=== PATIENT | female | born 1955 | race Caucasian/White ===

== ENCOUNTER 2019-03-29 00:51 | Day surgery (SDC) | payer BC, SELFPAY ==
[2019-03-18 10:45] VITALS: BMI 40.0
[2019-03-29] VITALS (7 sets, daily range): BP systolic 99–128; BP diastolic 53–93; PULSE 55–67; RESP 10–18; TEMP 36.4; O2SAT 97–100
--- NOTE | ~2019-03-29 | XR_ITS ---
EXAMINATION: XR abdomen/kub 1V INDICATION: Urinary tract calculi TECHNIQUE: Supine views of the abdomen were obtained on 2 radiographs. COMPARISON: 02/24/2019 FINDINGS: A left internal ureteral stent is in position with the proximal aspect coiling in the expec goldie location of the left renal pelvis. There appears to be a 12 mm stone adjacent to the mid stent pr ojecting over the left sacrum. An 8 mm stone is seen in the upper pole of the right kidney. There are multiple punctate left kidney stones. The bowel gas pattern is normal. There is a moderate volume of colonic stool. IMPRESSION: 1. Likely 12 mm stone adjacent to the mid and left ureteral stent. 2. Bilateral nephrolithiasis. Reviewed, dictated and finalized at location A. CRIPTION CREW LEADER
--- NOTE | 2019-03-29 07:06 | WPDHPUPDATE1 ---
History and Physical Update Update Date/Time: 03/29/19 07:06 History and Physical has been reviewed, including an updated exam of the patient. There are NO changes in the patient's condition. Risks, benefits, and alternatives have been discussed and questions answered. Patient agrees to proceed with procedure.
[2019-03-29] MEDS: LACTATED RINGERS 1,000 ML 30 ML IV CONT (09:05)
[2019-03-29 09:27] LABS: Glucose Point of Care 112 (65-105)
--- NOTE | 2019-03-29 09:39 | P.PNAN_ITS ---
Anes - Initial Pre Proc Eval Procedure: Operation Date: 03/29/19 10:30 Proposed Procedures p Left Extracorporeal Shock Wave Lithotripsy - Chuck Cai MD Date/Time: 03/29/19 09:39 Surgeon: Chuck Cai MD Pre Op Diagnosis: Left Kidney Stone Patient Data Age: 64 Gender: F Height: 5 ft 6 in Weight: 113.4 kg Last Vital Signs Temp 97.5 F L 03/29/19 09:20 Pulse 67 03/29/19 09:20 Resp 18 03/29/19 09:20 BP 115/68 03/29/19 09:20 Pulse Ox 100 03/29/19 09:20 Allergies Allergy/AdvReac Type Severity Reaction Status Date / Time No Known Allergies Allergy Verified 03/29/19 08:47 Home Medications Medication Instructions Recorded Confirmed Type Myrbetriq 50 mg PO DAILY 01/01/19 03/29/19 History chlorthalidone 50 mg PO DAILY 01/01/19 03/29/19 History cholecalciferol (vitamin D3) 2,000 unit PO DAILY 01/01/19 03/29/19 History losartan [Cozaar] 50 mg PO HS 01/01/19 03/29/19 History metformin [Glucophage] 500 mg PO BID 01/01/19 03/29/19 History potassium citrate [Urocit-K 15] 30 meq PO BID 01/01/19 03/29/19 History simvastatin [Zocor] 20 mg PO HS 01/01/19 03/29/19 History nitrofurantoin macrocrystal 100 mg PO Q12H 03/18/19 03/29/19 History Laboratory Tests 03/29/19 09:16 POC Capillary Glucose 112 mg/dl H mg/dl (65-105) Patient hx anesthesia problems: post op nausea/vomiting Family hx anesthesia problems: none PMFSH Past Medical History Medical History (Updated 02/24/19 @ 11:28 by Silas Florian MD) Arthritis back and bilat knees Diabetes mellitus HLD (hyperlipidemia) HTN (hypertension) Kidney stone Morbid obesity with BMI of 40.0-44.9, adult Recurrent kidney stones Recurrent UTI Surgical History Surgical History (Updated 02/24/19 @ 09:38 by Domonique Paz PA-C) History of History of colonoscopy History of dilation and curettage History of tonsillectomy and adenoidectomy History of total right hip arthroplasty Social History Social History (Updated 02/24/19 @ 09:41 by Domonique Paz PA-C) Smoking status: Never smoker Alcohol intake: current Drinks per week: 0 Substance use: never Additional living arrangements comments: Lives with in [place]. Additional occupation/education comments: Works at [employer]. Gender identity (if verbalized by the patient): Female Spiritual care concerns: No Agree to blood products: No Anes - Eval Final PreProcedure Day of Procedure 03/29/19 09:39 Patient weight: morbidly obese Heart: regular rate and rhythm Lungs: clear to auscultation Airway: Mallampati scale class III Neurological: alert and oriented Last oral intake: >/= 8 hours ASA classification: IV Emergent: no Anesthetic plan: proceed Anesthesia type and monitoring: general LMA and standard monitoring Informed Consent: The patient's anesthetic plan and its attendant risks and benefits were discussed with the patient/family/POA. Questions were solicited and answers provided to the satisfaction of the patient/family/POA.
[2019-03-29] MEDS: ONDANSETRON INJ 4 MG/2 ML VIAL IV PUSH (09:47)
[2019-03-29] MEDS: SCOPOLAMINE 1.5 MG PATCH TRANSDERM (09:47)
--- NOTE | 2019-03-29 11:16 | PM.PROC ---
Procedure Note - Detailed Date of procedure: 03/29/19 Pre-op diagnosis: Left Kidney Stone Post-op diagnosis: same Procedure performed: Left ESWL Description of procedure: The patient was brought to the operative suite where she was placed in the supine position on the Dornier lithotripsy table. The focal point of the lithotripter was placed at an 11mm left mid-ureteral calculus. A total of 3000 shocks were delivered at a power setting of 8. There appeared to be good fragmentation of the stone. The patient tolerated the procedure well and was taken to the recovery room in good condition. Anesthesia: GLMA Surgeon: Chuck Cai MD Estimated blood loss (mL): 0 Drains: No Packing: No Pathology: none sent Complications: No immediate complications Condition: stable Disposition: PACU
== END 2019-03-29 13:20 | disposition home or self-care (01) ==
PROVIDERS: PCP Nurse Practitioner Adult Health; Visit Provider Urology
PROC: (CPT 50590; principal; 2019-03-29 10:30)
DX: N20.0 Calculus of kidney (principal); I10 Essential (primary) hypertension; E78.5 Hyperlipidemia, unspecified; E11.9 Type 2 diabetes mellitus without complications; E66.01 Morbid (severe) obesity due to excess calories; Z68.41 Body mass index [BMI] 40.0-44.9, adult
CPT/HCPCS: 50590; 74018; A9270; J0131; J1100; J2250; J2405; J2704; J3370; J7120

== ENCOUNTER 2019-04-15 14:16 | Outpatient (CLI) | payer BC, SELFPAY ==
--- NOTE | ~2019-04-15 | XR_ITS ---
XR abdomen/kub 1V 04/15/2019 14:39 Indication: Left ureteral stone. Procedure: KUB Comparison: Comparison to multiple prior studies sequentially, with oldest reviewed study dated 09/2017. Findings: There is a large left mid ureteral stone at the sacral level measuring 2 x 1.4 cm. Left int ernal ureteral stent in expected position. Moderate lower lumbar spondylosis. There are multiple bila teral renal stones. Nonobstructive bowel gas pattern. Impression: 1: 2 x 1.4 cm left mid ureteral stone at the sacral level. 2: Bilateral nephrolithiasis. Reviewed, dictated and finalized at location A. ENTIALING SPECIALIST Impression: 1: 2 x 1.4 cm left mid ureteral stone at the sacral level. 2: Bilateral nephrolithiasis.
== END 2019-04-15 14:17 | disposition home or self-care (01) ==
PROVIDERS: PCP Nurse Practitioner Adult Health; Visit Provider Urology
DX: N20.1 Calculus of ureter (principal); N20.0 Calculus of kidney
CPT/HCPCS: 74018

== ENCOUNTER 2019-04-22 08:28 | Outpatient (CLI) | payer BC, SELFPAY ==
--- NOTE | ~2019-04-22 | XR_ITS ---
EXAMINATION: XR abdomen/kub 1V INDICATION: Left ureteral stone TECHNIQUE: Supine views of the abdomen were obtained on 2 radiographs. COMPARISON: 04/15/2019 FINDINGS: A left internal ureteral stent is in expected position. There is a 1.9 cm stone in the mid ureter adjacent to the stent. There also appears to be a 7 mm stone or stone fragment adjacent to the proximal stent just below the left L3 transverse process. There is an 8 mm stone in the right kidney upper pole. Several left kidney stones are identified which measure up to 3 mm. The bowel gas patter n is normal. There is moderate lumbar spondylosis. IMPRESSION: 1. Unchanged 2 cm stone in the left mid ureter adjacent to the internal ureteral stent. 2. Bilateral nephrolithiasis. Reviewed, dictated and finalized at location A. NEY SUPERVISOR BRICK IMPRESSION: 1. Unchanged 2 cm stone in the left mid ureter adjacent to the internal uretera l stent. 2. Bilateral nephrolithiasis.
== END 2019-04-22 08:29 | disposition home or self-care (01) ==
PROVIDERS: PCP Nurse Practitioner Adult Health; Visit Provider Urology
DX: N20.2 Calculus of kidney with calculus of ureter (principal)
CPT/HCPCS: 74018

== ENCOUNTER 2019-05-02 02:17 | Day surgery (SDC) | payer BC, SELFPAY ==
[2019-04-24 09:18] VITALS: BMI 40.3
[2019-05-02] VITALS (7 sets, daily range): BP systolic 89–129; BP diastolic 51–71; PULSE 59–75; RESP 12–20; TEMP 36.2–37.4; O2SAT 97–100
--- NOTE | ~2019-05-02 | XR_ITS ---
EXAMINATION: XR retrograde pyelo w/stent LT DATE: 05/02/2019 11:39 INDICATION: Left ureteral stone for stone extraction and stent placement TECHNIQUE: 8 fluoroscopic spot images of the abdomen and pelvis were obtained during procedure perfor med by Dr. Cai. Radiologist was not present for the imaging or procedure. The amount of fluoroscop y time used during this procedure was 0.3 minutes. COMPARISON: 04/22/2019 FINDINGS: On the initial scout sniper images there is a poorly defined large sclerotic stone projecting over the left sacral ala immediately cephalad to the ureteroscope. This no longer visualized on the subsequent imag e which demonstrates a wire advanced into the more proximal left ureter. Subsequent images demonstrat e the tip of a catheter and subsequently injected contrast within the severely dilated left renal col lecting system. Final images demonstrate placement of a left internal ureteral stent with loops forme d in the left renal pelvis and in the bladder. IMPRESSION: 1. Left ureteral stone extraction and stent of a left placement of a left internal ureteral stent whi ch is in expected position. Reviewed, dictated and finalized at location A. PUMPING STATION HELPER IMPRESSION: 1. Left ureteral stone extraction and stent of a left placement of a left inter nal ureteral stent which is in expected position.
--- NOTE | 2019-05-02 06:37 | WPDHPUPDATE1 ---
History and Physical Update Update Date/Time: 05/02/19 06:37 History and Physical has been reviewed, including an updated exam of the patient. There are NO changes in the patient's condition. Risks, benefits, and alternatives have been discussed and questions answered. Patient agrees to proceed with procedure.
--- NOTE | 2019-05-02 08:14 | P.PNAN_ITS ---
Anes - Initial Pre Proc Eval Procedure: Operation Date: 05/02/19 11:45 Proposed Procedures p Cystoscopy, Left Ureteroscopy, Left Stone Extraction, Possible Left Stent Placement - Chuck Cai MD s Holmium Laser Procedure - Chuck Cai MD Date/Time: 05/02/19 08:14 Surgeon: Chuck Cai MD Pre Op Diagnosis: Left Kidney Stones Patient Data Age: 64 Gender: F Height: 1.68 m Weight: 113.4 kg Allergies Allergy/AdvReac Type Severity Reaction Status Date / Time No Known Allergies Allergy Verified 04/24/19 09:19 Home Medications Medication Instructions Recorded Confirmed Type Myrbetriq 50 mg PO DAILY 01/01/19 04/24/19 History chlorthalidone 50 mg PO DAILY 01/01/19 04/24/19 History cholecalciferol (vitamin D3) 2,000 unit PO DAILY 01/01/19 04/24/19 History losartan [Cozaar] 50 mg PO HS 01/01/19 04/24/19 History metformin [Glucophage] 500 mg PO BID 01/01/19 04/24/19 History potassium citrate [Urocit-K 15] 30 meq PO BID 01/01/19 04/24/19 History simvastatin [Zocor] 20 mg PO HS 01/01/19 04/24/19 History Patient hx anesthesia problems: none Family hx anesthesia problems: none [facility] Past Medical History Medical History (Updated 02/24/19 @ 11:28 by Silas Florian MD) Arthritis back and bilat knees Diabetes mellitus HLD (hyperlipidemia) HTN (hypertension) Kidney stone Morbid obesity with BMI of 40.0-44.9, adult Recurrent kidney stones Recurrent UTI Surgical History Surgical History (Updated 02/24/19 @ 09:38 by Domonique Paz PA-C) History of History of colonoscopy History of dilation and curettage History of tonsillectomy and adenoidectomy History of total right hip arthroplasty Social History Social History (Updated 02/24/19 @ 09:41 by Domonique Paz PA-C) Smoking status: Never smoker Alcohol intake: current Drinks per week: 0 Substance use: never Additional living arrangements comments: Lives with in [place]. Additional occupation/education comments: Works at [employer]. Gender identity (if verbalized by the patient): Female Spiritual care concerns: No Agree to blood products: No Anes - Eval Final PreProcedure Day of Procedure 05/02/19 08:14 Patient weight: morbidly obese Heart: regular rate and rhythm Lungs: clear to auscultation and normal air movement Airway: Mallampati scale class II Neurological: alert and oriented Last oral intake: >/= 8 hours ASA classification: III Emergent: no Anesthetic plan: proceed Anesthesia type and monitoring: general LMA Informed Consent: The patient's anesthetic plan and its attendant risks and benefits were discussed with the patient/family/POA. Questions were solicited and answers provided to the satisfaction of the patient/family/POA.
[2019-05-02] MEDS: LACTATED RINGERS 1,000 ML 30 ML IV CONT ×2 (10:21→12:18)
[2019-05-02 10:30] LABS: Glucose Point of Care 90 (65-105)
[2019-05-02] MEDS: SCOPOLAMINE 1.5 MG PATCH TRANSDERM (10:42)
[2019-05-02] MEDS: ceFAZolin 2 GM/D5W 50 ML 2 GM/50 ML BAG IVPB (10:48)
--- NOTE | 2019-05-02 11:40 | P.OP_ITS ---
Procedure Note - Detailed Date of procedure: 05/02/19 Pre-op diagnosis: Left Kidney Stones Post-op diagnosis: same Procedure performed: 1. Cystoscopy with left stent removal. 2. Left ureteroscopy with laser lithotripsy and stone extraction. 3. Left retrograde pyelogram with interpretation. 4. Left stent replacement. Description of procedure: The patient was brought to the operative suite where she is prepped and draped in a routine sterile fashion while in the dorsal lithotomy position after the uneventful induction of a general LMA anesthetic. A 19F rigid cystoscope was placed in the bladder. The patient had no evidence of urethral stricture or bladder neck contracture. The bladder mucosa was endoscopically normal without hyperemia or neoplasm. There was a single, orthotopic ureteral orifice bilaterally with an indwelling stent in the left ureter. The stent is grasped and removed without difficulty. A 0.035 glidewire was advanced into the left renal pelvis under fluoroscopy. The distal ureter was dilated with an 8F/10F ureteral dilator. Ureteroscopy was undertaken with a short tapered semi-rigid ureteroscope. The large, 2 cm left mid ureteral stone is fractured from prior ESWL. Using a 0.273 micron holmium laser fiber I fractured the stone into multiple fragments using a dusting setting. Either by irrigation or with a escape disposable stone basket. Due to the extent of this manipulation I did replace a 4.8F double-J ureteral stent. I 1st performed a retrograde pyelogram through an angiographic catheter to ensure all fragments had been removed and proper positioning of the stent. The proxi mal coil of the stent was confirmed to be in the renal pelvis and the distal coil in the bladder. The patient's bladder was emptied and he was taken to the recovery room having tolerated this procedure well. Anesthesia: GLMA Surgeon: Chuck Cai MD Estimated blood loss (mL): 0 Drains: Yes (4.8F ureteral stent) Packing: No Pathology: yes Complications: No immediate complications Condition: stable Disposition: PACU
[2019-05-02 11:59] LABS: Glucose Point of Care 100 (65-105)
== END 2019-05-02 13:27 | disposition home or self-care (01) ==
PROVIDERS: PCP Nurse Practitioner Adult Health; Visit Provider Urology
PROC: (CPT 52352; principal; 2019-05-02 11:45)
PROC: (CPT 52356; 2019-05-02 11:45)
DX: N20.1 Calculus of ureter (principal); I10 Essential (primary) hypertension; E78.5 Hyperlipidemia, unspecified; E11.9 Type 2 diabetes mellitus without complications; E66.01 Morbid (severe) obesity due to excess calories; Z68.41 Body mass index [BMI] 40.0-44.9, adult; Z79.84 Long term (current) use of oral hypoglycemic drugs
CPT/HCPCS: 52356; 74420; 82365; 88300; A9270; C1769; C1887; C2617; J0690; J1100; J2250; J2405; J2704; J3010; J7120; Q9966

== ENCOUNTER 2019-09-23 08:44 | Outpatient (CLI) | payer BC, SELFPAY ==
--- NOTE | ~2019-09-23 | XR_ITS ---
EXAMINATION: XR abdomen/kub 1V INDICATION: Nephrolithiasis TECHNIQUE: Supine views of the abdomen were obtained on 2 radiographs. COMPARISON: 04/22/2019 FINDINGS: The left internal ureteral stent has removed. The previously described stone adjacent to th e mid aspect of the internal ureteral stent is no longer identified. Multiple punctate calcifications project over the left kidney, the largest of which measures 2 mm in the lower pole. There is a stabl e 8 mm stone projecting over the right mid kidney. No stones are identified along the expected course s of the ureters or within the bladder. Pelvic phleboliths are noted. There is severe lower lumbar sp ondylosis. Mild bilateral hip osteoarthritis is noted. The bowel gas pattern is normal. IMPRESSION: 1. Unchanged nephrolithiasis. Left internal ureteral stent removed and left ureteral stone treated. Reviewed, dictated and finalized at location B. IMPRESSION: 1. Unchanged nephrolithiasis. Left internal ureteral stent removed and left ure teral stone treated.
== END 2019-09-23 08:45 | disposition home or self-care (01) ==
PROVIDERS: PCP Nurse Practitioner Adult Health; Visit Provider Urology
DX: N20.0 Calculus of kidney (principal)
CPT/HCPCS: 74018

== ENCOUNTER 2020-05-04 16:13 | Outpatient (CLI) | payer BC, SELFPAY | END 2020-05-04 16:14 | disposition home or self-care (01) | LOC: ANHCOVIDVC 16:13 | PROVIDERS: PCP Nurse Practitioner Adult Health | DX: Z23 Encounter for immunization (principal) | CPT/HCPCS: 0001A; 91300 ==

== ENCOUNTER 2020-05-15 02:37 | Emergency (ER) | payer BC, SELFPAY ==
--- NOTE | ~2020-05-15 | CT_ITS ---
EXAMINATION: CT abdomen pelvis wo con DATE: 05/15/2020 03:10 INDICATION: Left abdominal pain. TECHNIQUE: Computed tomography (CT) of the abdomen and pelvis was performed without intravenous contr ast. Automated exposure control and iterative reconstruction technique were employed. The dose-length product was 1433.95 mGy-cm. COMPARISON: CT abdomen and pelvis 02/24/2019 FINDINGS: The visualized portions of the lung bases are clear without pneumonia or pleural effusion. The heart size is normal. There are coronary artery calcifications. No pericardial effusion. The live r is normal. There is a gallstone in the gallbladder, which is normal in size. The spleen, pancreas, and adrenal glands are normal. There is cortical thinning of the kidneys. There are greater than 10 s tones in right kidney measuring up to 9 mm. There are greater than 10 stones in left kidney measuring up to 4 mm. There is diverticulosis of the colon without evidence of diverticulitis. There are no di lated loops of bowel. The appendix is normal. There is an umbilical hernia containing fat. There are no pathologically enlarged lymph nodes. There is no free intraperitoneal fluid. There is moderate lum bar spondylosis. IMPRESSION: 1. Bilateral nonobstructing kidney stones. 2. Cholelithiasis. Reviewed, dictated and finalized at location A.
[2020-05-15 02:41] VITALS: BP 99/66; PULSE 67; RESP 16; TEMP 36.3; O2SAT 100
[2020-05-15] MEDS: SODIUM CHLORIDE 0.9% IV 1,000 ML 999 ML IV CONT (03:13)
[2020-05-15] MEDS: MORPHINE SULFATE (*CRX) 4 MG/ML INJ IV PUSH (03:13)
[2020-05-15] MEDS: ONDANSETRON INJ 4 MG/2 ML VIAL IV PUSH (03:13)
[2020-05-15 03:14] LABS: Basophils Absolute Auto 0.1 K/mm3 (0.0-0.1); Basophils Percent Auto 0.6 % (0.2-1.2); Eosinophils Absolute Auto 0.3 K/mm3 (0-0.3); Eosinophils Percent Auto 3.6 % (0-4.4); Hematocrit 36.8 % (37.0-47.0); Hemoglobin 12.3 g/dL (12.0-15.0); Immature Granulocyte Absolute 0.04 K/mm3 (0.00-0.031); Immature Granulocyte Percent A 0.5 % (0-0.5); Lymphocytes Absolute Auto 2.26 K/mm3 (0.9-3.2); Mean Corpuscular HGB Conc 33.4 g/dl (32-36); Mean Corpuscular Hemoglobin 30.8 pg (26-34); Mean Corpuscular Volume 92.2 fl (80-100); Monocytes Absolute Auto 0.5 K/mm3 (0.1-0.6); Monocytes Percent Auto 6.4 % (2.6-8.5); Neutrophils Absolute Auto 4.7 K/mm3 (1.3-6.7); Neutrophils Percent Auto 59.9 % (45.5-73.1); Platelet Count Result 258 k/mm3 (150-375); Red Blood Count 3.99 M/mm3 (4.2-5.4); Red Cell Distribution Width 12.6 % (11.5-14.5); White Blood Count 7.8 K/mm3 (4.5-10.0)
[2020-05-15 03:24] LABS: Alanine Aminotransferase 12 U/L (4-35); Albumin Level 4.2 g/dL (3.5-5.1); Alkaline Phosphatase 79 U/L (38-126); Anion Gap 3 mmol/L (8-16); Aspartate Amino Transferase 20 U/L (14-36); Bilirubin,Total 0.5 mg/dL (0.2-1.3); Blood Urea Nitrogen 25 mg/dL (7-17); Calcium 9.6 mg/dL (8.4-10.2); Carbon Dioxide 33 mmol/L (22-30); Chloride 101 mmol/L (98-107); Estimated CRCL calculation 60 ml/min; Estimated Glomerular Filt Rate 56; Glucose 135 mg/dL (65-105); Potassium 4.1 mmol/L (3.4-5.0); Sodium 137 mmol/L (137-145)
[2020-05-15 03:25] LABS: Add Urine Microscopic? YES; Appearance Urine Cloudy (Clear); Bacteria Urine Trace /hpf; Bilirubin Urine Negative (Negative); Blood Urine 2+ (Negative); Color Urine Yellow (Yellow); Glucose Urine UA Negative (Negative); Ketones Urine Negative (Negative); Leukocyte Esterase Ur 2+ LEU/UL (Negative); Mucus Urine Rare /lpf; Nitrate Urine Negative (Negative); Protein Urine Negative (Negative); Specific Grav Ur 1.018 (1.001-1.035); Squamous Epithelial Cell Urine Moderate /hpf (Few); Urobilinogen Urine Negative mg/dL (<2.0); WBC Urine 51-75 /hpf
--- NOTE | 2020-05-15 05:15 | ED.GENADULT ---
HPI - General Adult General Chief complaint: Abdominal Pain Stated complaint: back pain/ hx kidney stones Time Seen by Provider: 05/15/20 02:59 History of Present Illness HPI narrative: Patient is a 65-year-old female who presents to emergency department with chief complaint of flank pain. The patient reports she has prior history of kidney stones and reports that today she started having pain in her left flank patient reports that is very uncomfortable is not improved with anything. Patient reports subtle bit of nausea with this but denies fever denies chills. Related Data Home Medications Medication Instructions Recorded Confirmed Myrbetriq 50 mg PO DAILY 01/01/19 04/24/19 chlorthalidone 50 mg PO DAILY 01/01/19 04/24/19 cholecalciferol (vitamin D3) 2,000 unit PO DAILY 01/01/19 04/24/19 losartan [Cozaar] 50 mg PO HS 01/01/19 05/02/19 metformin [Glucophage] 500 mg PO BID 01/01/19 05/02/19 potassium citrate [Urocit-K 15] 30 meq PO BID 01/01/19 04/24/19 simvastatin [Zocor] 20 mg PO HS 01/01/19 05/02/19 Allergies Allergy/AdvReac Type Severity Reaction Status Date / Time No Known Allergies Allergy Verified 05/15/20 02:45 Review of Systems Review of Systems: Narrative: A 10 system review of systems was completed on the patient and is negative except for what is stated in the HPI. Nursing and ancillary documentation was reviewed. [facility] Past Medical History Medical History Arthritis back and bilat knees Diabetes mellitus HLD (hyperlipidemia) HTN (hypertension) Kidney stone Morbid obesity with BMI of 40.0-44.9, adult Recurrent kidney stones Recurrent UTI Surgical History Surgical History History of History of colonoscopy History of dilation and curettage History of tonsillectomy and adenoidectomy History of total right hip arthroplasty Family History Family History Father Cerebrovascular accident Aneurysm Mother Alzheimer disease Pacemaker Social History Social History Smoking status: Never smoker Alcohol intake: current Drinks per week: 0 Substance use: never Additional living arrangements comments: Lives with in [place]. Additional occupation/education comments: Works at [employer]. Gender identity (if verbalized by the patient): Female Spiritual care concerns: No Agree to blood products: No Exam Narrative: Exam Narrative: GENERAL: Well-appearing, well-nourished, and in no acute distress. HEAD: Normocephalic, atraumatic. EYES: PERRLA and EOMI. ENT: Nares clear, no rhinorrhea or epistaxis. Mucous membranes moist. NECK: Supple. CHEST: Clear to auscultation. No respiratory distress. HEART: Regular rate and rhythm. No murmur heard. Normal peripheral pulses. ABDOMEN: Soft, nontender, nondistended, normal active bowel sounds. EXTREMITIES: Normal range of motion. No edema. SKIN: Warm, dry, no rash. NEURO: No focal deficits. Alert and oriented x3. PSYCH: Normal mood and affect. Course Vital Signs Vital signs: Vital Signs Temperature 36.3 C L 05/15/20 02:41 Pulse Rate 67 05/15/20 02:41 Respiratory Rate 16 05/15/20 02:41 Blood Pressure 99/66 L 05/15/20 02:41 Pulse Oximetry 100 05/15/20 02:41 Temperature 36.3 C L 05/15/20 02:41 Pulse Rate 67 05/15/20 02:41 Respiratory Rate 16 05/15/20 02:41 Blood Pressure 99/66 L 05/15/20 02:41 Pulse Oximetry 100 05/15/20 02:41 Medical Decision Making Vital Signs Vital Signs: Vital Signs Temperature 36.3 C L 05/15/20 02:41 Pulse Rate 67 05/15/20 02:41 Respiratory Rate 16 05/15/20 02:41 Blood Pressure 99/66 L 05/15/20 02:41 Pulse Oximetry 100 05/15/20 02:41 Temperature 36.3 C L 05/15/20 02:41 Pulse
[2020-05-15 05:36] VITALS: BP 131/75; PULSE 86; RESP 16; TEMP 36.8; O2SAT 98
== END 2020-05-15 05:37 | disposition home or self-care (01) ==
PROVIDERS: Emergency Provider Emergency Medicine; PCP Nurse Practitioner Adult Health
DX: N10 Acute pyelonephritis (principal); K80.20 Calculus of gallbladder without cholecystitis without obstruction; I10 Essential (primary) hypertension; E78.5 Hyperlipidemia, unspecified; E11.9 Type 2 diabetes mellitus without complications; E66.01 Morbid (severe) obesity due to excess calories; Z68.41 Body mass index [BMI] 40.0-44.9, adult; M17.0 Bilateral primary osteoarthritis of knee; Z96.641 Presence of right artificial hip joint; Z87.442 Personal history of urinary calculi; Z79.84 Long term (current) use of oral hypoglycemic drugs
CPT/HCPCS: 36415; 74176; 80053; 81001; 85025; 87077; 87086; 87088; 87186; 96361; 96374; 96375; 99284; J0696; J2270; J2405; J7030

== ENCOUNTER 2020-05-25 16:12 | Outpatient (CLI) | payer BC, SELFPAY | END 2020-05-25 16:13 | disposition home or self-care (01) | LOC: ANHCOVIDVC 16:12 | PROVIDERS: PCP Nurse Practitioner Adult Health | DX: Z23 Encounter for immunization (principal) | CPT/HCPCS: 0002A; 91300 ==

== ENCOUNTER → 2020-10-22 03:28 | Outpatient (CLI) | payer BC, SELFPAY ==
[2020-10-22 20:01] LABS: SARS-CoV-2 RNA PCR Positive
== END ==
PROVIDERS: PCP Nurse Practitioner Adult Health; Visit Provider Nurse Practitioner Adult Health
DX: U07.1 COVID-19 (principal)
CPT/HCPCS: C9803; U0003; U0005

== ENCOUNTER 2021-03-08 08:25 | Outpatient (CLI) | payer BC, MEDICARE, SELFPAY ==
--- NOTE | ~2021-03-08 | XR_ITS ---
EXAMINATION: XR abdomen/kub 1V DATE: 03/08/2021 08:41 INDICATION: Renal stone. TECHNIQUE: A supine view of the abdomen on 2 radiographs was obtained. COMPARISON: CT abdomen and pelvis 05/15/2020 FINDINGS: There are no dilated loops of bowel. There are phleboliths in the pelvis. There are multipl e stones in right kidney measuring up to 8 mm. There are multiple stones in left kidney measuring up to 4 mm. IMPRESSION: 1. Bilateral kidney stones. Reviewed, dictated and finalized at location B. ER MOLDED CANDLES IMPRESSION: 1. Bilateral kidney stones.
== END 2021-03-08 08:26 | disposition home or self-care (01) ==
PROVIDERS: PCP Nurse Practitioner Adult Health; Visit Provider Urology
DX: N20.0 Calculus of kidney (principal)
CPT/HCPCS: 74018

== ENCOUNTER 2021-08-12 13:22 | Outpatient (CLI) | payer BC, MEDICARE, SELFPAY ==
--- NOTE | 2021-08-12 13:30 | ECG_ITS ---
Measurements Intervals [place] Rate: 68 P: 52 CT: 179 QRS: -10 QRSD: 92 T: 27 QT: 369 QTc: 394 Interpretive Statements SINUS RHYTHM MODERATE VOLTAGE CRITERIA FOR LVH, CONSIDER NORMAL VARIANT [MEETS CRITERIA IN ONE OF: R(aVL), S(V1), R(V5), R(V5/V6)+S(V1)] ABNORMAL ECG COMPARED TO ECG 02/24/2019 11:04:22 NO SIGNIFICANT CHANGES Electronically Signed On 08-12-2021 14:36:03 CDT by Jay Jay Benitez M.D.
[2021-08-12 14:01] LABS: Anion Gap 5 mmol/L (8-16); Blood Urea Nitrogen 19 mg/dL (7-17); Calcium 8.9 mg/dL (8.4-10.2); Carbon Dioxide 31 mmol/L (22-30); Chloride 103 mmol/L (98-107); Estimated Glomerular Filt Rate > 60; Glucose 103 mg/dL (65-110); Sodium 139 mmol/L (137-145)
[2021-08-12 14:24] LABS: INR 1.1; Prothrombin Time 13.4 Seconds (11.1-14.7)
[2021-08-12 14:25] LABS: Partial Thromboplastin Time 29.7 SECONDS (22.3-36.8)
== END 2021-08-12 13:23 | disposition home or self-care (01) ==
LOC: ANHSURGERY 13:28
PROVIDERS: Anesthesiology; PCP Nurse Practitioner Adult Health; Visit Provider Urology
DX: N20.0 Calculus of kidney (principal); I10 Essential (primary) hypertension; E11.9 Type 2 diabetes mellitus without complications; Z01.818 Encounter for other preprocedural examination
CPT/HCPCS: 36415; 80048; 85610; 85730; 93005

== ENCOUNTER 2021-08-13 04:51 | Day surgery (SDC) | payer BC, MEDICARE, SELFPAY ==
[2021-08-12 09:59] VITALS: BMI 43.4
--- NOTE | 2021-08-12 10:20 | PC.NURSE ---
Report to the Outpatient Waiting Room, entrance under the green pavilion located off [facility], at time __10:30AM on date __08/13/21 . OR Time: _12:30AM . - You and your visitor will be asked a series of questions to screen for COVID 19 for your protection. - Only one visitor is allowed at this time. - The patient visitor is requested to leave or wait in car when not with patient. - A mask is required within the hospital. Patients may have clear liquids (water, carbonated beverages, clear teas, apple juice) until 3 hours prior to surgery with a maximum of 20 ounces. - No food from midnight until time of surgery - Infants may have breast milk until 4 hours before surgery, formula 6 hours prior to surgery. - Children will be allowed to drink immediately following surgery. If applicable, please bring a bottle or sippy cup to assist with drinking. Juice, water, soda, and popsicles are readily available. For infants on formula, please bring formula the day of surgery. Pacifiers are allowed. Take the following medications with a SIP of water the morning of surgery: ___NONE Medications to discontinue per physician ___HOLD ALL VITAMINS/SUPPLEMENTS 3 DAYS PRE-OP-TOOK A LAST DOSE 08/10/21 Please no make-up, nail slovak, hairspray, perfume, deodorant, or body powder the day of surgery. No jewelry (including any body piercings) or valuables the day of surgery, leave them at home. Please take a shower or bath the night before, or the morning of, surgery with an antibacterial soap. Wear comfortable, loose fitting clothing. Children are encouraged to wear pajamas. - Jewelry must be removed prior to entering the operating room. Rings and piercings that are not removed may be cut off. - The hospital will not accept responsibility for valuables. - Please leave all valuables, including medications, at home the day of surgery. If you are going home after surgery, a licensed uke driver must drive you home. - NO public transportation without another adult. - We recommend that an adult stay with you for 24 hours following discharge. - We also recommend that you do not drive, make important decision, drink alcoholic beverages, or take any drugs that were not prescribed by your health care provider for at least 24 hours after your discharge time. For Pediatric surgeries, we recommend two adults accompany the child home (only one inside the building at this time). Follow any additional instructions given to you from your surgeon. If you or anyone in your household have experienced Covid symptoms in the past week, please notify your surgeon or the nurse liaison at the phone number below for possible testing. Telephone instructions given to _PATIENT and asked if any additional questions and then verbalized understanding. Patient advised to call surgeon office or pre surgery nurse liaison [phone] if any additional questions.
--- NOTE | ~2021-08-13 | XR_ITS ---
EXAMINATION: XR abdomen/kub 1V DATE: 08/13/2021 10:49 INDICATION: Kidney stone. TECHNIQUE: A supine view of the abdomen on 2 radiographs was obtained. COMPARISON: CT abdomen and pelvis 05/15/2020, abdomen radiographs 03/08/2021 FINDINGS: There are no dilated loops of bowel. There are at least 3 stones in right kidney measuring up to 9 mm. There are least 3 stones in left kidney measuring up to 4 mm. IMPRESSION: 1. Bilateral kidney stones. Reviewed, dictated and finalized at location B. IMPRESSION: 1. Bilateral kidney stones.
--- NOTE | 2021-08-13 06:56 | WPDHPUPDATE1 ---
History and Physical Update Update Date/Time: 08/13/21 06:56 History and Physical has been reviewed, including an updated exam of the patient. There are NO changes in the patient's condition. Risks, benefits, and alternatives have been discussed and questions answered. Patient agrees to proceed with procedure.
[2021-08-13 11:36] LABS: Glucose Point of Care 100 mg/dl (65-105)
[2021-08-13] MEDS: LACTATED RINGERS 1,000 ML 30 ML IV CONT (11:36)
[2021-08-13 11:37] VITALS: BP 136/63; PULSE 66; RESP 16; TEMP 36.9; O2SAT 98
--- NOTE | 2021-08-13 12:16 | P.PNAN_ITS ---
Anes - Eval Pre Procedure Procedure: Operation Date: 08/13/21 12:30 Proposed Procedures p Right Renal Extracorporeal Shock Wave Lithotripsy - Chuck Cai MD Date/Time: 08/13/21 12:16 Surgeon: chanel Pre Op Diagnosis: right renal stone Patient Data Age: 66 Gender: F Height: 1.68 m Weight: 125 kg Last Vital Signs Temp 36.9 C 08/13/21 11:37 Pulse 66 08/13/21 11:37 Resp 16 08/13/21 11:37 BP 136/63 08/13/21 11:37 Pulse Ox 98 08/13/21 11:37 O2 Del Method Room Air 08/13/21 11:37 Allergies Allergy/AdvReac Type Severity Reaction Status Date / Time No Known Allergies Allergy Verified 08/13/21 11:00 Home Medications Medication Instructions Recorded Confirmed Type chlorthalidone 50 mg tablet 50 mg PO QAM 01/01/19 08/13/21 History cholecalciferol (vitamin D3) 50 2,000 unit PO DAILY 01/01/19 08/13/21 History mcg (2,000 unit) tablet metformin 500 mg tablet 500 mg PO BID 01/01/19 08/13/21 History (Glucophage) potassium citrate 15 mEq (1,620 30 meq PO BID 01/01/19 08/13/21 History mg) tablet,extended release (Urocit-K 15) simvastatin 20 mg tablet (Zocor) 20 mg PO HS 01/01/19 08/13/21 History telmisartan 40 mg tablet 1 tablet PO HS 08/12/21 08/13/21 History Laboratory Tests 08/13/21 11:34 POC Capillary Glucose 100 mg/dl mg/dl (65-105) Patient hx anesthesia problems: post op nausea/vomiting Family hx anesthesia problems: none Results Review: All pre-operative results and documents have been reviewed as part of the pre- operative evaluation. [facility] Past Medical History Medical History Arthritis back and bilat knees Diabetes mellitus HLD (hyperlipidemia) HTN (hypertension) Kidney stone Morbid obesity with BMI of 40.0-44.9, adult Recurrent kidney stones Recurrent UTI Surgical History Surgical History History of History of colonoscopy History of dilation and curettage History of tonsillectomy and adenoidectomy History of total right hip arthroplasty Family History Family History Father Cerebrovascular accident Aneurysm Mother Alzheimer disease Pacemaker Social History Social History Smoking status: Never smoker Alcohol intake: current Drinks per week: 0 Alcohol use details: Few times per year Substance use: never Living arrangements: with family Additional living arrangements comments: HUSB AND SON Additional occupation/education comments: Works at [employer]. Gender identity (if verbalized by the patient): Female Spiritual care concerns: No Agree to blood products: No Exam Day of Procedure 08/13/21 12:16
[2021-08-13] MEDS: levoFLOXacin 500 MG/D5W 100 ML 500 MG/100 ML BAG 100 MG IVPB (12:23)
--- NOTE | 2021-08-13 12:43 | P.PNAN_ITS ---
Anes - Eval Final PreProcedure Day of Procedure 08/13/21 12:43 Patient weight: morbidly obese Heart: regular rate and rhythm Lungs: decreased breath sounds Airway: Mallampati scale class III Neurological: alert and oriented Last oral intake: >/= 8 hours ASA classification: III Emergent: no Anesthetic plan: proceed Anesthesia type and monitoring: general LMA and standard monitoring Results Review: All pre-operative results and documents have been reviewed as part of the pre- operative evaluation. Informed Consent: The patient's anesthetic plan and its attendant risks and benefits were discussed with the patient/family/POA. Questions were solicited and answers provided to the satisfaction of the patient/family/POA.
--- NOTE | 2021-08-13 12:54 | W.PM.PROC2 ---
Procedure Note - Detailed Date of Procedure 08/13/21 Pre-op Diagnosis Right renal stone Post-op Diagnosis Same Procedure Performed Right ESWL Surgeon Chuck Cai MD Description of Procedure The patient was brought to the operative suite where she was placed in the supine position on the Dornier lithotripsy table. After the induction of a general anesthetic and administration of pre-operative Levaquin IV, the focal point of the lithotripter was placed at a 8mm right renal calculus. A total of 2500 shocks were delivered at a power setting of 4. There appeared to be good fragmentation of the stone. The patient tolerated the procedure well and was taken to the recovery room in good condition. Drains No Pathology None sent Complications No immediate complications Condition Stable
[2021-08-13 13:05] VITALS: BP 120/60; PULSE 67; RESP 10; TEMP 36.8; O2SAT 100
[2021-08-13 13:15] VITALS: BP 118/84; PULSE 63; RESP 10; O2SAT 100
[2021-08-13 13:20] LABS: Glucose Point of Care 94 mg/dl (65-105)
[2021-08-13 13:30] VITALS: BP 130/76; PULSE 64; RESP 12; O2SAT 97
[2021-08-13 13:40] VITALS: BP 122/63; PULSE 62; RESP 12; TEMP 37.1; O2SAT 97
[2021-08-13 14:10] VITALS: BP 110/60; PULSE 60; RESP 20
== END 2021-08-13 14:29 | disposition home or self-care (01) ==
PROVIDERS: PCP Nurse Practitioner Adult Health; Visit Provider Urology
PROC: (CPT 50590; principal; 2021-08-13 12:30)
DX: N20.0 Calculus of kidney (principal); E11.9 Type 2 diabetes mellitus without complications; I10 Essential (primary) hypertension; E78.5 Hyperlipidemia, unspecified; Z79.84 Long term (current) use of oral hypoglycemic drugs; E66.01 Morbid (severe) obesity due to excess calories; Z68.41 Body mass index [BMI] 40.0-44.9, adult
CPT/HCPCS: 50590; 74018; 82948; A9270; J1100; J1956; J2250; J2270; J2405; J2704; J7120

== ENCOUNTER 2021-08-24 08:53 | Outpatient (CLI) | payer BC, MEDICARE, SELFPAY ==
--- NOTE | ~2021-08-24 | XR_ITS ---
EXAMINATION: XR abdomen/kub 1V INDICATION: Calculus of kidney TECHNIQUE: Supine views of the abdomen were obtained on 2 radiographs. COMPARISON: 08/13/2021 FINDINGS: There is been interval treatment of a 9 mm stone previously described in the right kidney. Smaller stone fragments are seen within kidney. The largest measures 5 mm. There are multiple stones of the left kidney which are unchanged and measure up to 4 mm. No stone fragments are identified sary g the expected courses of the ureter or within the urinary bladder. There is a phlebolith of left pel vis. Severe lumbar spondylosis is noted. There is moderate osteoarthritis of the hips. IMPRESSION: 1. Bilateral nephrolithiasis with interval treatment of the previously described right kidney stone a nd smaller stone fragment now projecting in the kidney. Reviewed, dictated and finalized at location A. IMPRESSION: 1. Bilateral nephrolithiasis with interval treatment of the previously describe d right kidney stone and smaller stone fragment now projecting in the kidney.
== END 2021-08-24 08:54 | disposition home or self-care (01) ==
PROVIDERS: PCP Nurse Practitioner Adult Health; Visit Provider Urology
DX: N20.0 Calculus of kidney (principal)
CPT/HCPCS: 74018

== ENCOUNTER 2021-10-17 13:06 | Emergency (ER) | payer BC, MEDICARE, SELFPAY ==
[2021-10-17 13:18] VITALS: BP 141/72; PULSE 77; RESP 16; TEMP 37.1; O2SAT 99
[2021-10-17 13:34] LABS: Glucose Point of Care 99 mg/dl (65-105)
--- NOTE | 2021-10-17 14:00 | ED.WOUNDLAC ---
HPI - Wound/Laceration General Chief Complaint: Wound/Laceration Stated Complaint: Sore on left leg Time Seen by Provider: 10/17/21 13:50 Source: patient, RN notes reviewed and old records reviewed Mode of arrival: ambulatory Limitations: no limitations History of Present Illness HPI narrative: 66 year old female who presents to express care with complaints of wound to her left lower leg which started about 3 weeks ago when she tripped going into house from garage and smashed her lower leg in door causing initially a quarter sized blister to the inner medial calf. Patient reports that she saw her PCP and was started on Clindamycin of which she took her last dose on Monday. She states that the blister popped and it developed an ulcer with center blackened. Patient saw her automatic pinsetter adjuster and she has been having patient apply Vaseline and wrap with gauze daily and has next appointment not for 2 weeks. Patient reports that she was concerned since she has increased redness and raised red rash around the wound and it is warm to touch. Patient has 2cm X 3cm wound with blackened inner eschar tissue with no drainage noted left lower inner leg. Patient denies any fever, chills, or sweats. Patient's glucose per finger stick is 99. Onset (ago): week(s) (3) Location: other (left lower leg) Patient tetanus UTD: No Treatments prior to arrival: bandage and other (antibiotics) Related Data Home Medications Medication Instructions Recorded Confirmed chlorthalidone 50 mg tablet 50 mg PO QAM 01/01/19 10/17/21 cholecalciferol (vitamin D3) 50 2,000 unit PO DAILY 01/01/19 10/17/21 mcg (2,000 unit) tablet metformin 500 mg tablet 500 mg PO BID 01/01/19 10/17/21 (Glucophage) potassium citrate 15 mEq (1,620 30 meq PO BID 01/01/19 10/17/21 mg) tablet,extended release (Urocit-K 15) simvastatin 20 mg tablet (Zocor) 20 mg PO HS 01/01/19 10/17/21 telmisartan 40 mg tablet 1 tablet PO HS 08/12/21 10/17/21 Allergies Allergy/AdvReac Type Severity Reaction Status Date / Time No Known Allergies Allergy Verified 10/17/21 13:19 Review of Systems Review of Systems: CONSTITUTIONAL: Denies fever, chills, or sweats. EYES: Denies visual changes, redness, or discharge. ENT: Denies rhinorrhea, congestion, sore throat, or otalgia. CARDIOVASCULAR: Denies chest pain, palpitations, or edema. RESPIRATORY: Denies cough or dyspnea. GASTROINTESTINAL: Denies abdominal pain, nausea, vomiting, or diarrhea. GENITOURINARY: Denies dysuria or hematuria. SKIN: Positive for ulcer to left lower leg with eschar tissue in center and surrounding redness,raised rash with warmth MUSCULOSKELETAL: Denies back pain, joint pain, or myalgia. NEUROLOGIC: Denies headache, numbness, or weakness. PSYCHIATRIC: Denies anxiety or depression. All systems reviewed & are unremarkable except as noted in HPI and below PMFSH Past Medical History Medical History Arthritis back and bilat knees Diabetes mellitus HLD (hyperlipidemia) HTN (hypertension) Kidney stone Morbid obesity with BMI of 40.0-44.9, adult Recurrent kidney stones Recurrent UTI Surgical History Surgical History History of History of colonoscopy History of dilation and curettage History of tonsillectomy and adenoidectomy History of total right hip arthroplasty Family History Family History Father Cerebrovascular accident Aneurysm Mother Alzheimer disease Pacemaker Social History Social History Smoking status: Never smoker Alcohol intake: current Drinks per week: 0 Alcohol use details: Few times per year Substance use: never Additional living arrangements comments: HUSB AND SON Additional occupation/education comments: Works at [employer]. Gender i
[2021-10-17] MEDS: TETANUS,DIPHTHERIA,AC PERTUSSIS ADULT (0.5 ML) BOOSTRIX IM (14:14)
== END 2021-10-17 14:38 | disposition home or self-care (01) ==
PROVIDERS: Emergency Provider Registered Nurse; PCP Nurse Practitioner Adult Health
DX: L02.416 Cutaneous abscess of left lower limb (principal); L03.116 Cellulitis of left lower limb; Z23 Encounter for immunization; E11.9 Type 2 diabetes mellitus without complications; E78.5 Hyperlipidemia, unspecified; I10 Essential (primary) hypertension; E66.01 Morbid (severe) obesity due to excess calories; Z68.42 Body mass index [BMI] 45.0-49.9, adult
CPT/HCPCS: 82948; 90471; 90715; 99213; G0463

== ENCOUNTER 2021-11-19 10:30 | Outpatient (CLI) | payer BC, MEDICARE, SELFPAY ==
--- NOTE | ~2021-11-19 | XR_ITS ---
XR abdomen/kub 1V 11/19/2021 10:49 Indication: Renal stone follow-up Procedure: KUB Comparison: 08/24/2021 Findings: There are bilateral renal stones. Kidneys partially obscured by bowel content. Bowel patter n is nonobstructive. Severe lumbar spondylosis. No stones are identified in the expected course of th e ureters. Impression: 1: Bilateral nephrolithiasis. Reviewed, dictated and finalized at location A. Impression: 1: Bilateral nephrolithiasis.
== END 2021-11-19 10:31 | disposition home or self-care (01) ==
PROVIDERS: PCP Nurse Practitioner Adult Health; Visit Provider Urology
DX: N20.0 Calculus of kidney (principal)
CPT/HCPCS: 74018

== ENCOUNTER 2022-03-11 14:23 | Outpatient (CLI) | payer BC, MEDICARE, SELFPAY ==
--- NOTE | ~2022-03-11 | XR_ITS ---
EXAMINATION: XR abdomen/kub 1V INDICATION: Renal stone follow-up TECHNIQUE: Supine views of the abdomen were obtained on 2 radiographs. COMPARISON: 11/19/2021 FINDINGS: Stable stones of the right kidney measure 8 mm and 4 mm. There appear to be multiple stable small stones of the left kidney measuring up to 2 mm. The bowel gas pattern is normal. There is mode rate lumbar spondylosis. Mild osteoarthritis is noted in the hips. IMPRESSION: 1. Stable bilateral nephrolithiasis. Reviewed, dictated and finalized at location B. E INSTALLER FOREMAN
== END 2022-03-11 14:24 | disposition home or self-care (01) ==
LOC: ANHIMG 14:28
PROVIDERS: Visit Provider Urology
DX: N20.0 Calculus of kidney (principal)
CPT/HCPCS: 74018

== ENCOUNTER → 2022-03-29 09:11 | Outpatient (CLI) | payer BC, MEDICARE, SELFPAY ==
--- NOTE | ~2022-03-29 | DEXA_ITS ---
Bone Density Report Name: ERIC HEIN Age: 67 Sex: Female Ethnicity: White Date of : 1955 Indication: postmenopausal; screening for osteoporosis; Referring Provider: Nat Ricks Study: Bone densitometry was performed. Exam Date: March 29, 2022 Accession number: [id number] Bone Density: Region BMD T-score Z-score Classification AP Spine (L1, L2, L3) 1.080 0.6 2.4 Normal Femoral Neck (Left) 0.767 -0.7 0.8 Normal Total Hip (Left) 0.940 0.0 1.3 Normal Femoral Neck (Right) 0.855 0.1 1.6 Normal Total Hip (Right) 1.029 0.7 2.0 Normal Total Hip Mean 0.985 0.4 1.7 Normal World Health Organization criteria for BMD impression classify patients as: Normal (T-score at or above -1.0), Osteopenia (T-score between -1.0 and -2.5), or Osteoporosis (T-score at or below -2.5). 10-year Fracture Risk: FRAX not reported because: All T-scores for Spine Total, Hip Total, Femoral Neck at or above -1.0 Clinical Information Provided by Patient: Has used the following medications: Vitamin D Patient maximum height was 66 Menopause Age: 49 No regular weight bearing exercise Does not regularly consume dairy products Drinks caffeinated beverages Onset of menses at age 14 Number of children 1 Impression: The patient has normal bone mass. Discussion: BONE DENSITY IS ABOVE THE MINIMUM DESIRABLE LEVEL AT ALL SKELETAL SITES TESTED. This patient?s bone mineral density is above the minimum desirable level (T-score -1.0 or better) at all sites measured. The patient should follow a healthful lifestyle (good nutrition with adequate calcium and vitamin D, and appropriate weight-bearing exercise). Follow-Up: Consider repeating this study in 5 years or sooner if there is some new clinical indication. Reported by: JUAN JOSE on 03/29/2022 9:35:00 AM. Reviewed, dictated and finalized at location AMonse YOUSIF
== END ==
PROVIDERS: PCP Physician Assistant Medical; Visit Provider Physician Assistant Medical
DX: Z78.0 Asymptomatic menopausal state (principal); Z13.820 Encounter for screening for osteoporosis
CPT/HCPCS: 77080

== ENCOUNTER 2022-04-05 07:26 | Outpatient (CLI) | payer BC, MEDICARE, SELFPAY ==
--- NOTE | 2022-04-05 07:55 | ECHO_ITS ---
Patient Info Name: Beena Johnson Age: 67 years : 1955 Gender: Female Ht: 65 in Wt: 282 lbs BSA: 2.50 m2 HR: 66 bpm BP: 123 / 86 mmHg Technical Quality: Fair Exam Date: 04/05/2022 8:00 AM Exam Location: [facility] Patient Status: Outpatient Admit Date: 04/05/2022 Staff Ordering Physician: Nat Ricks PAC Telemetry Registered Nurse: Hannah Carmona RDCS Attending Provider: Nat Ricks Referring Physician: Millicent SHIPLEY; Exam Type: CA echo doppler color flow Study Info Indications R01.1 - Cardiac murmur, unspecified Complete two-dimensional, color flow and Doppler transthoracic echocardiogram is performed. Summary 1. Complete two-dimensional, color flow and Doppler transthoracic echocardiogram is performed. 2. Left ventricular chamber dimension is normal. 3. Left ventricular systolic function is normal, estimated at 60-65%. 4. The left ventricular diastolic function is normal. 5. E/e' 7 is not elevated. 6. Global longitudinal strain is normal at -18.1%. 7. Left atrial chamber dimension is mildly enlarged. 8. The aortic valve is not well visualized. Cannot determine number of aortic valve leaflets. 9. There is moderate aortic valve stenosis based on a peak velocity of 295 cm/s, mean gradient of 13 mmHg, and aortic valve area of 1.4 cm2. 10. There is moderate aortic valve sclerosis. 11. There is mild aortic valve regurgitation. 12. No pulmonary hypertension, estimated pulmonary arterial systolic pressure is 29 mmHg. Left Ventricle E/e' 7 is not elevated. Global longitudinal strain is normal at -18.1%. Left ventricular chamber dimension is normal. Left ventricular systolic function is normal, estimated at 60-65%. The left ventricular diastolic function is normal. Right Ventricle Right ventricular systolic function is normal and with normal TAPSE 2.8 cm. Right ventricular chamber dimension is normal. Left Atria Left atrial chamber dimension is mildly enlarged. Right Atria Right atrial chamber dimension is normal. Aortic Valve The aortic valve is not well visualized. Cannot determine number of aortic valve leaflets. There is moderate aortic valve stenosis based on a peak velocity of 295 cm/s, mean gradient of 13 mmHg, and aortic valve area of 1.4 cm2. There is moderate aortic valve sclerosis. There is mild aortic valve regurgitation. Pulmonic Valve There is no pulmonic regurgitation. Mitral Valve There is no mitral valve stenosis. There is no mitral valve regurgitation. Tricuspid Valve There is no tricuspid valve regurgitation. No pulmonary hypertension, estimated pulmonary arterial systolic pressure is 29 mmHg. Pericardium/Pleural There is no pericardial effusion. Inferior Vena Cava Normal inferior vena cava with >50% collapse upon inspiration consistent with normal right atrial pressure, 5 mmHg. Aorta The aortic root size at the sinus of Valsalva is normal. Left Ventricular Outflow Tract Name Value Normal LVOT 2D LVOT Diameter 2.0 cm LVOT Doppler LVOT Peak Gradient 4 mmHg LVOT Mean Gradient 2 mmHg LVOT
== END 2022-04-05 07:27 | disposition home or self-care (01) ==
LOC: ANHCARD 07:28
PROVIDERS: PCP Physician Assistant Medical; Visit Provider Physician Assistant Medical
DX: R01.1 Cardiac murmur, unspecified (principal); I35.1 Nonrheumatic aortic (valve) insufficiency
CPT/HCPCS: 93306

== ENCOUNTER 2022-05-03 23:30 | Observation (INO) | payer BC, MEDICARE, SELFPAY ==
--- NOTE | ~2022-05-03 | CT_ITS ---
EXAMINATION: CT abdomen pelvis wo con DATE: 05/04/2022 00:31 INDICATION: Right flank pain. TECHNIQUE: Computed tomography (CT) of the abdomen and pelvis was performed without intravenous contr ast. Automated exposure control and iterative reconstruction technique were employed. The dose-length product was 972.09 mGy-cm. COMPARISON: CT abdomen and pelvis 05/15/2020 FINDINGS: The visualized portions of the lung bases are clear without pneumonia or pleural effusion. The heart size is normal. There are calcifications of aortic valve. No pericardial effusion. There is a small sliding hiatal hernia. There is diffuse hepatic steatosis. There is a gallstone in the gallb ladder, which is distended. The spleen, pancreas, and adrenal glands are normal. There are greater th an 10 stones in right kidney measuring up to 4 mm. There is a 6 mm stone at right ureterovesicular ju nction. There is mild right hydroureter. There is a focus of gas in the right ureter. There are great er than 10 stones in left kidney measuring up to 3 mm. There is cortical thinning of left kidney. The re is diverticulosis of the colon without evidence of diverticulitis. The appendix is normal. There a re no dilated loops of bowel. There are no pathologically enlarged lymph nodes. There is no free intr aperitoneal fluid. There is an umbilical hernia containing fat. There is moderate lumbar spondylosis. IMPRESSION: 1. 6 mm stone at the right ureterovesicular junction with mild right hydroureter. Focus of gas in the right ureter. 2. Bilateral nonobstructing kidney stones. 3. Cholelithiasis. Gallbladder distention may be secondary to fasting. 4. Umbilical hernia containing fat. Reviewed, dictated and finalized at location A. PHOTO OPERATOR IMPRESSION: 1. 6 mm stone at the right ureterovesicular junction with mild right hydrourete r. Focus of gas in the right ureter. 2. Bilateral nonobstructing kidney stones. 3. Cholelithiasis. Gallbladder distention may be secondary to fasting. 4. Umbilical hernia containing fat.
--- NOTE | ~2022-05-03 | CT_ITS ---
Non-contrast CT scan of the Abdomen and Pelvis Clinical indication: Ureteral stone Technique: 2.5 mm axial scans were obtained through the abdomen and pelvis without intravenous or or al contrast. Dose reduction technique was used on this scan by utilizing automated exposure control a nd iterative reconstruction technique. The dose-length product (DLP) was 912.81 mGy-cm. COMPARISON: 05/04/2022 Findings: Images through the lung bases reveal no abnormalities. There has been interval placement of right ureteral stent. Previously noted right UVJ stone is no mark alton identified. No stone seen along the course of the right ureteral stent. Bilateral nonobstructing nephrolithiasis is similar to prior exam. No left ureteral stone or left hydronephrosis. The liver, spleen, pancreas, and adrenals appear normal. Stable calcified gallstone. There is no aort ic aneurysm. There is no evidence of bowel obstruction. Sigmoid diverticulosis noted. Small fat-containing umbilic al hernia noted. Normal appendix. Images through the pelvis were performed. There is no evidence of ascites or lymphadenopathy. Urinary bladder otherwise unremarkable. No adnexal mass seen. Impression: Status post interval placement of right ureteral stent with resolution of right hydronephrosis. Right UVJ stone is no longer seen. Nonobstructing bilateral nephrolithiasis, unchanged. Cholelithiasis. Reviewed, dictated and finalized at [facility]. NCE FACULTY MEMBER Impression: Status post interval placement of right ureteral stent with resolution of right hydronephrosis. Right UVJ stone is no longer seen. Nonobstructing bilateral nephrolithiasis, unchanged. Cholelithiasis.
--- NOTE | ~2022-05-03 | XR_ITS ---
EXAMINATION: XR retrograde pyelo w/stent RT DATE: 05/04/2022 11:38 INDICATION: Right ureteral stone TECHNIQUE: 39 fluoroscopic images of the abdomen and pelvis were obtained during procedure performed by Dr. Nielson. Radiologist was not present for the imaging or procedure. The amount of fluoroscop y time used during this procedure was 1.1 minutes. COMPARISON: CT dated 05/04/2022 FINDINGS: No stones identified at the right kidney, ureter or in the bladder on the cap sewer images. Subsequent im aging demonstrates cannulation and retrograde contrast injections into the right ureter with no evide nt strictures or filling defects. Final images demonstrate placement of a right internal ureteral ted nt with loops formed in the right renal pelvis and in the bladder. IMPRESSION: 1. Previously seen stone at the right ureterovesicular junction is not identified and may have passed . 2. Right internal ureteral stent placement in expected position. Reviewed, dictated and finalized at location A. GER LEAN IMPRESSION: 1. Previously seen stone at the right ureterovesicular junction is not identifi ed and may have passed. 2. Right internal ureteral stent placement in expected position.
[2022-05-03 23:40] VITALS: BP 142/104; PULSE 94; RESP 20; TEMP 36.7; O2SAT 98
[2022-05-03 23:47] LABS: Basophils Absolute Auto 0.1 K/mm3 (0.0-0.1); Basophils Percent Auto 0.4 % (0.2-1.2); Eosinophils Percent Auto 0.3 % (0-4.4); Hematocrit 37.6 % (37.0-47.0); Hemoglobin 12.6 g/dL (12.0-15.0); Immature Granulocyte Absolute 0.07 K/mm3 (0.00-0.031); Immature Granulocyte Percent A 0.6 % (0-0.5); Lymphocytes Absolute Auto 0.95 K/mm3 (0.9-3.2); Lymphocytes Percent Auto 7.9 % (18.3-44.2); Mean Corpuscular HGB Conc 33.5 g/dl (32-36); Mean Corpuscular Hemoglobin 30.4 pg (26-34); Mean Corpuscular Volume 90.8 fl (80-100); Mean Platelet Volume 10.5 fl (7.4-10.4); Monocytes Absolute Auto 0.1 K/mm3 (0.1-0.6); Monocytes Percent Auto 1.1 % (2.6-8.5); Neutrophils Absolute Auto 10.7 K/mm3 (1.3-6.7); Neutrophils Percent Auto 89.7 % (45.5-73.1); Platelet Count Result 235 k/mm3 (150-375); Red Blood Count 4.14 M/mm3 (4.2-5.4); Red Cell Distribution Width 12.9 % (11.5-14.5)
[2022-05-03 23:54] LABS: Alanine Aminotransferase 29 U/L (6-35); Albumin Level 4.6 g/dL (3.5-5.1); Alkaline Phosphatase 69 U/L (38-126); Anion Gap 8 mmol/L (8-16); Aspartate Amino Transferase 27 U/L (14-36); Bilirubin,Total 0.8 mg/dL (0.2-1.3); Blood Urea Nitrogen 23 mg/dL (7-17); Calcium 9.4 mg/dL (8.4-10.2); Carbon Dioxide 27 mmol/L (22-30); Chloride 97 mmol/L (98-107); Estimated CRCL calculation 55 ml/min; Estimated Glomerular Filt Rate 45; Glucose 168 mg/dL (65-110); Potassium 4.2 mmol/L (3.4-5.0); Sodium 132 mmol/L (137-145)
[2022-05-03 23:59] LABS: Appearance Urine Cloudy (Clear); Bacteria Urine 4+ /hpf; Bilirubin Urine Negative (Negative); Blood Urine 3+ (Negative); Color Urine Yellow (Yellow); Glucose Urine UA Negative (Negative); Ketones Urine Trace mg/dL (Negative); Leukocyte Esterase Ur 3+ LEU/UL (Negative); Nitrate Urine Positive (Negative); Protein Urine 1+ mg/dL (Negative); RBC Urine 21-50 /hpf (0-2); Specific Grav Ur 1.017 (1.001-1.035); Squamous Epithelial Cell Urine Occasional /hpf (Few); WBC Urine >100 /hpf; pH Urine 5.5 (5.0-9.0)
[2022-05-04] VITALS (12 sets, daily range): BP systolic 95–137; BP diastolic 42–60; PULSE 79–95; RESP 14–20; TEMP 36.2–38.1; O2SAT 96–100; BMI 46.7
[2022-05-04 00:03] LABS: Add Urine Microscopic? YES
--- NOTE | 2022-05-04 01:39 | ED.GENADULT ---
HPI - General Adult General Chief complaint: Back Pain/Injury <WHITNEY Sauer Last Filed: 05/04/22 02:28> Stated complaint: back and abdominal pain <WHITNEY Sauer Last Filed: 05/04/22 02:28> Time Seen by Provider: 05/04/22 01:01 <WHITNEY Sauer Last Filed: 05/04/22 02:28> Source: patient <WHITNEY Sauer Last Filed: 05/04/22 02:28> Mode of arrival: ambulatory <WHITNEY Sauer Last Filed: 05/04/22 02:28> Limitations: no limitations <WHITNEY Sauer Last Filed: 05/04/22 02:28> History of Present Illness HPI narrative: Patient is a 67 y/o female who presents to the ED with report of right flank pain. Patient reports the pain began suddenly around 4:30 PM today. Pain began radiating around to her right sided abdomen. Patient has a history of kidney stones and states pain feels similar. She sees Dr. Cai with Urology. She states she last passed a stone about 1 year ago, but has been told since then she has renal stones bilaterally. Patient also reported having nausea with 2 episodes of emesis prior to arrival, in addition to difficulty urinating today. She denies any fevers, dysuria, hematuria, diarrhea, constipation, rectal bleeding, melena. Patient reports her pain is somewhat improved currently. She did take 2 hydrocodone earlier today at the onset of pain. <WHITNEY Sauer Last Filed: 05/04/22 02:28> Related Data Home medications: Home Medications Medication Instructions Recorded Confirmed chlorthalidone 50 mg tablet 50 mg PO QAM 01/01/19 03/22/22 cholecalciferol (vitamin D3) 50 2,000 unit PO DAILY 01/01/19 03/22/22 mcg (2,000 unit) tablet metformin 500 mg tablet 500 mg PO BID 01/01/19 03/22/22 (Glucophage) simvastatin 20 mg tablet (Zocor) 20 mg PO HS 01/01/19 03/22/22 telmisartan 40 mg tablet 1 tablet PO HS 08/12/21 03/22/22 potassium citrate 10 mEq (1,080 10 meq PO .QD 03/22/22 03/22/22 mg) tablet,extended release vibegron 75 mg tablet (Gemtesa) 75 mg PO .QD 03/22/22 03/22/22 <Cornelia Yarbrough PA-C - Last Filed: 05/04/22 02:28> Allergies/adverse reactions: Allergies Allergy/AdvReac Type Severity Reaction Status Date / Time No Known Allergies Allergy Verified 03/22/22 07:39 <Cornelia Yarbrough PA-C - Last Filed: 05/04/22 02:28> Review of Systems Review of Systems: CONSTITUTIONAL: Denies fever, chills, or sweats. CARDIOVASCULAR: Denies chest pain. RESPIRATORY: Denies dyspnea. GASTROINTESTINAL: See HPI. GENITOURINARY: See HPI. SKIN: Denies rash or itching. MUSCULOSKELETAL: See HPI. <Cornelia Yarbrough PA-C - Last Filed: 05/04/22 02:28> All systems reviewed & are unremarkable except as noted in HPI and below <Cornelia Yarbrough PA-C - Last Filed: 05/04/22 02:28> [facility] Past Medical History Medical History: Medical History Arthritis back and bilat knees Diabetes mellitus HLD (hyperlipidemia) HTN (hypertension) Kidney stone Morbid obesity with BMI of 40.0-44.9, adult Recurrent kidney stones Recurrent UTI <Cornelai Yarbrough PA-C - Last Filed: 05/04/22 02:28> Surgical History Surgical History: Surgical History History of History of colonoscopy History of dilation and curettage History of tonsillectomy and adenoidectomy History of total right hip arthroplasty <WHITNEY Sauer Last Filed: 05/04/22 02:28> Family History Family History: Family History Father Cerebrovascular accident Aneurysm Mother Alzheimer disease Pacemaker <Cornelia Yarbrough PA-C - Last Filed: 05/04/22 02:28> Social History Social History: Social History Smoking s
[2022-05-04] MEDS: SODIUM CHLORIDE 0.9% IV 1,000 ML 999 ML IV CONT (01:42)
[2022-05-04] MEDS: SODIUM CHLORIDE 0.9% IV 1,000 ML 125 ML IV CONT ×2 (02:56→14:19)
--- NOTE | 2022-05-04 03:29 | PM.IMHP ---
H&P: HPI History of Present Illness Date/Time: 05/04/22 03:29 Chief Complaint: 67 years old female with past medical history of hyperlipidemia hypertension diabetes aortic stenosis presented to the hospital with right flank pain started yesterday around 4:30 p.m. severe worsening gradually did not improve with [place] associated with nausea multiple times a day associated with vomiting 2 times patient denies fever or chills patient has history of recurrent UTI secondary to Klebsiella pneumonia recurrent kidney stone she follow-up with Urology as outpatient at the ER patient was found to have right-sided obstructive uropathy secondary to urolithiasis associated with UTI urology was consulted IV antibiotic was started patient will be admitted to the hospital for further evaluation and treatment of obstructive uropathy associated with UTI plan for IV antibiotics and cystoscopy with possible stent placement Review of Systems Review of Systems: Twelve system review was done negative except above PMFSH Past Medical History Medical History (Updated 05/04/22 @ 03:34 by Joon Felipe MD) Arthritis back and bilat knees Diabetes mellitus HLD (hyperlipidemia) HTN (hypertension) Kidney stone Morbid obesity with BMI of 40.0-44.9, adult Recurrent kidney stones Recurrent UTI Surgical History Surgical History History of History of colonoscopy History of dilation and curettage History of tonsillectomy and adenoidectomy History of total right hip arthroplasty Family History Family History Father Cerebrovascular accident Aneurysm Mother Alzheimer disease Pacemaker Social History Social History Smoking status: Never smoker Alcohol intake: current Drinks per week: 0 Alcohol use details: Few times per year Substance use: never Lack of Transportation: No Lack of Food: Never True Current Housing: I Have Housing Concerned About Future Housing: No Difficulty Paying Gas/Electric Bills: No Difficulty Paying for Meds: No Currently Unemployed: No Education: High School Diploma/GED Difficulty w/ Childcare or Family Care: No Living arrangements: with family Additional living arrangements comments: HUSB AND SON Occupation/Education: occupation Additional occupation/education comments: Works at [email or web address]. Gender identity (if verbalized by the patient): Female Spiritual care concerns: No Agree to blood products: No Meds Home Medications and Allergies Home Medications Medication Instructions Recorded Confirmed Type chlorthalidone 50 mg tablet 50 mg PO QAM 01/01/19 03/22/22 History cholecalciferol (vitamin D3) 50 2,000 unit PO DAILY 01/01/19 03/22/22 History mcg (2,000 unit) tablet metformin 500 mg tablet 500 mg PO BID 01/01/19 03/22/22 History (Glucophage) simvastatin 20 mg tablet (Zocor) 20 mg PO HS 01/01/19 03/22/22 History telmisartan 40 mg tablet 1 tablet PO HS 08/12/21 03/22/22 History potassium citrate 10 mEq (1,080 10 meq PO .QD 03/22/22 03/22/22 History mg) tablet,extended release vibegron 75 mg tablet (Gemtesa) 75 mg PO .QD 03/22/22 03/22/22 History omeprazole 40 mg capsule,delayed 40 mg PO DAILY #30 caps 04/18/22 Rx release Allergies Allergy/AdvReac Type Severity Reaction Status Date / Time No Known Allergies Allergy Verified 03/22/22 07:39 Vital Signs Vital Signs - 24 hr 05/03/22 23:40 Temperature 98.1 F Pulse Rate 94 Respiratory Rate 20 Blood Pressure 142/104 H Pulse Oximetry 98 Oxygen Delivery Room Air Exam Narrative: GENERAL: Well appearing, well-nourished, non-toxic, in no acute distress. HEAD: Normocephalic, atraumatic. NECK: Supple. No adenopathy, no masses. RESPIRATORY: Airway patent, respirations nonlabored. Clear to auscultation
--- NOTE | 2022-05-04 03:59 | ADMGEN ---
This patient, Beena Johnson, was admitted to Medical Room 243-01. Patient/family oriented to hospital policies and general routines including ID bracelet, bed and alarms, visiting hours, pain management, procedures, bathroom and other care routines, personal items, smoking policy, room service/diet, and visiting hours. Information on how to activate the Rapid Response Team has been discussed. Patient/Family are encouraged to report perceived risks to care and to ask questions if they do not understand what they are told or what they should do.
[2022-05-04] MEDS: CEFEPIME 1 GM in DEXTROSE 5% IN WATER 50 ML IVPB ×2 (04:24→16:33)
[2022-05-04 06:20] LABS: Basophils Percent Auto 0.3 % (0.2-1.2); Eosinophils Percent Auto 0.1 % (0-4.4); Hematocrit 32.6 % (37.0-47.0); Hemoglobin 10.9 g/dL (12.0-15.0); Immature Granulocyte Absolute 0.08 K/mm3 (0.00-0.031); Immature Granulocyte Percent A 0.5 % (0-0.5); Lymphocytes Absolute Auto 0.63 K/mm3 (0.9-3.2); Lymphocytes Percent Auto 4.3 % (18.3-44.2); Mean Corpuscular HGB Conc 33.4 g/dl (32-36); Mean Corpuscular Hemoglobin 30.5 pg (26-34); Mean Corpuscular Volume 91.3 fl (80-100); Mean Platelet Volume 11.8 fl (7.4-10.4); Monocytes Absolute Auto 0.5 K/mm3 (0.1-0.6); Monocytes Percent Auto 3.6 % (2.6-8.5); Neutrophils Absolute Auto 13.3 K/mm3 (1.3-6.7); Neutrophils Percent Auto 91.2 % (45.5-73.1); Platelet Count Result 196 k/mm3 (150-375); Red Blood Count 3.57 M/mm3 (4.2-5.4); Red Cell Distribution Width 12.9 % (11.5-14.5); White Blood Count 14.6 K/mm3 (4.5-10.0)
[2022-05-04 06:36] LABS: Alanine Aminotransferase 26 U/L (6-35); Albumin Level 3.9 g/dL (3.5-5.1); Alkaline Phosphatase 54 U/L (38-126); Anion Gap 8 mmol/L (8-16); Aspartate Amino Transferase 27 U/L (14-36); Bilirubin,Total 0.9 mg/dL (0.2-1.3); Blood Urea Nitrogen 25 mg/dL (7-17); Calcium 8.5 mg/dL (8.4-10.2); Carbon Dioxide 25 mmol/L (22-30); Chloride 102 mmol/L (98-107); Estimated CRCL calculation 55 ml/min; Estimated Glomerular Filt Rate 45; Glucose 144 mg/dL (65-110); Potassium 3.9 mmol/L (3.4-5.0); Sodium 135 mmol/L (137-145)
[2022-05-04] MEDS: MORPHINE SULFATE (*CRX) 2 MG/ML INJ IV PUSH (08:34)
[2022-05-04] MEDS: ONDANSETRON INJ 4 MG/2 ML VIAL IV PUSH (08:35)
[2022-05-04 08:43] LABS: Glucose Point of Care 132 mg/dl (65-105)
--- NOTE | 2022-05-04 08:53 | WPDURCON ---
Assessment and Plan Assessment and plan (1) UTI (urinary tract infection): Qualifiers: Hematuria presence: with hematuria Urinary tract infection type: acute cystitis Qualified Code(s): N30.01 - Acute cystitis with hematuria Code(s): N39.0 - Urinary tract infection, site not specified Status: Acute (2) Calculus of ureterovesical junction (UVJ): Code(s): N20.1 - Calculus of ureter Status: Acute (3) Hydroureteronephrosis: Code(s): N13.30 - Unspecified hydronephrosis Status: Acute Plan 67-year-old female with history of stone disease presenting with right distal ureteral stone and urinalysis concerning for urinary tract infection - plan cystoscopy and right ureteral stent insertion today. Patient understands risks benefits and alternatives. She understands risks procedure including wound to infection, bleeding, pain, injury surrounding structures, inability to place stent. She understands she will need definitive stone management at a later time. plan cystoscopy right retrograde pyelogram and right ureteral stent insertion today - Continue IV antibiotics. Await final urine cultures Urology Consult Note HPI Date Seen: 05/04/22 Requesting Physician: Joon Felipe MD Primary Care Provider: Nat Ricks, PAC Consult Narrative Narrative: Beena Johnson is a 67 year old female With a known history of stone disease. She presented to the emergency department last night with worsening right-sided pain. She was found on CT scan imaging to have a right distal ureteral stone as well as multiple renal stones. patient with urinalysis concerning for UTI. She was admitted to the hospitalist and started on IV antibiotics PMFSH Past Medical History Medical History (Updated 05/04/22 @ 03:34 by Joon Felipe MD) Arthritis back and bilat knees Diabetes mellitus HLD (hyperlipidemia) HTN (hypertension) Kidney stone Morbid obesity with BMI of 40.0-44.9, adult Recurrent kidney stones Recurrent UTI Surgical History Surgical History History of History of colonoscopy History of dilation and curettage History of tonsillectomy and adenoidectomy History of total right hip arthroplasty Family History Family History Father Cerebrovascular accident Aneurysm Mother Alzheimer disease Pacemaker Social History Social History Smoking status: Never smoker Alcohol intake: current Drinks per week: 0 Alcohol use details: Few times per year Substance use: never Last use: 1 beer a month maybe Lack of Transportation: No Lack of Food: Never True Current Housing: I Have Housing Concerned About Future Housing: No Difficulty Paying Gas/Electric Bills: No Difficulty Paying for Meds: No Currently Unemployed: No Education: High School Diploma/GED Difficulty w/ Childcare or Family Care: No Living arrangements: with family Additional living arrangements comments: HUSB AND SON Occupation/Education: occupation Additional occupation/education comments: Works at [email or web address]. Gender identity (if verbalized by the patient): Female Spiritual care concerns: No Agree to blood products: No Meds Home Medications and Allergies Home Medications Medication Instructions Recorded Confirmed Type chlorthalidone 50 mg tablet 50 mg PO DAILY 01/01/19 05/04/22 History cholecalciferol (vitamin D3) 50 2,000 unit PO DAILY 01/01/19 05/04/22 History mcg (2,000 unit) tablet metformin 500 mg tablet 500 mg PO BID 01/01/19 05/04/22 History (Glucophage) simvastatin 20 mg tablet (Zocor) 20 mg PO HS 01/01/19 05/04/22 History telmisartan 40 mg tablet 1 tablet PO HS 08/12/21 05/04/22 History potassium citrate 10 mEq (1,080 10 meq PO BID 03/22/22
--- NOTE | 2022-05-04 08:56 | WPDHPUPDATE1 ---
History and Physical Update Update Date/Time: 05/04/22 08:56 History and Physical has been reviewed, including an updated exam of the patient. There are NO changes in the patient's condition. Risks, benefits, and alternatives have been discussed and questions answered. Patient agrees to proceed with procedure.
--- NOTE | 2022-05-04 10:31 | WPDANESEPPF ---
Anes - Initial Pre Proc Eval Procedure: Operation Date: 05/04/22 11:00 Proposed Procedures p Cystoscopy, Right Stent Placecment - Sergei Nielson MD Date/Time: 05/04/22 10:31 Surgeon: Joon Felipe MD Pre Op Diagnosis: UTI, R UVJ stone, acute renal insufficiency Patient Data Age: 67 Gender: F Height: 1.65 m Weight: 127.5 kg Last Vital Signs Temp 37.7 C H 05/04/22 09:45 Pulse 94 05/04/22 09:45 Resp 18 05/04/22 09:45 BP 110/53 L 05/04/22 09:45 Pulse Ox 98 05/04/22 09:45 O2 Del Method Room Air 05/04/22 09:45 Allergies Allergy/AdvReac Type Severity Reaction Status Date / Time No Known Allergies Allergy Verified 03/22/22 07:39 Home Medications Medication Instructions Recorded Confirmed Type chlorthalidone 50 mg tablet 50 mg PO DAILY 01/01/19 05/04/22 History cholecalciferol (vitamin D3) 50 2,000 unit PO DAILY 01/01/19 05/04/22 History mcg (2,000 unit) tablet metformin 500 mg tablet 500 mg PO BID 01/01/19 05/04/22 History (Glucophage) simvastatin 20 mg tablet (Zocor) 20 mg PO HS 01/01/19 05/04/22 History telmisartan 40 mg tablet 1 tablet PO HS 08/12/21 05/04/22 History potassium citrate 10 mEq (1,080 10 meq PO BID 03/22/22 05/04/22 History mg) tablet,extended release vibegron 75 mg tablet (Gemtesa) 75 mg PO DAILY 03/22/22 05/04/22 History omeprazole 40 mg capsule,delayed 40 mg PO DAILY #30 caps 04/18/22 05/04/22 Rx release Laboratory Tests 05/03/22 05/03/22 05/03/22 23:39 23:39 23:43 WBC 12.0 K/mm3 H K/mm3 (4.5-10.0) RBC 4.14 M/mm3 L M/mm3 (4.2-5.4) Hgb 12.6 g/dL g/dL (12.0-15.0) Hct 37.6 % % (37.0-47.0) MCV 90.8 fl fl (80-100) MCH 30.4 pg pg (26-34) MCHC 33.5 g/dl g/dl (32-36) RDW 12.9 % % (11.5-14.5) Plt Count 235 k/mm3 k/mm3 (150-375) MPV 10.5 fl H fl (7.4-10.4) Immature Gran % (Auto) 0.6 % H % (0-0.5) Neut % (Auto) 89.7 % H % (45.5-73.1) Lymph % (Auto) 7.9 % L % (18.3-44.2) [place] % (Auto) 1.1 % L % (2.6-8.5) Eos % (Auto) 0.3 % % (0-4.4) Baso % (Auto) 0.4 % % (0.2-1.2) Lymph # (Auto) 0.95 K/mm3 K/mm3 (0.9-3.2) [place] # (Auto) 0.1 K/mm3 K/mm3 (0.1-0.6) Eos # (Auto) 0.0 K/mm3 K/mm3 (0-0.3) Baso # (Auto) 0.1 K/mm3 K/mm3 (0.0-0.1) Abs Immat Gran (auto) 0.07 K/mm3 H K/mm3 (0.00-0.031) Absolute Neuts (auto) 10.7 K/mm3 H K/mm3 (1.3-6.7) Absolute Nucleated RBC 0.0 K/mm3 K/mm3 (0.0-0.012) Nucleated RBC % 0.0 % % (0.0-0.2) Sodium 132 mmol/L L mmol/L (137-145) Potassium 4.2 mmol/L mmol/L (3.4-5.0) Chloride 97 mmol/L L mmol/L (98-107) Carbon Dioxide 27 mmol/L mmol/L (22-30) Anion Gap 8 mmol/L mmol/L (8-16) BUN 23 mg/dL H mg/dL (7-17) Creatinine 1.20 mg/dL H mg/dL (0.7-1.0) Estim Creat Clear Calc 55 ml/min ml/min Estimated GFR 45 L (59 - ) Glucose 168 mg/dL H mg/dL (65-110) POC Capillary Glucose Calcium 9.4 mg/dL mg/dL (8.4-10.2) Total Bilirubin 0.8 mg/dL mg/dL (0.2-1.3) AST 27 U/L U/L (14-36) ALT 29 U/L U/L (6-35) Alkaline Phosphatase 69 U/L U/L (38-126) Total Protein 7.0 g/dL g/dL (6.3-8.2) Albumin 4.6 g/dL g/dL (3.5-5.1) Urine Color Yellow (Yellow) Urine Appearance Cloudy H (Clear) Urine pH 5.5 (5.0-9.0) Ur Specific [place] 1.017 (1.001-1.035) Urine Protein 1+ mg/dL H mg/dL (Negative) Urine Glucose (UA) Negative mg/dL mg/dL (Negative) Urine Ketones Trace mg/dL mg/dL (Negative) Ur Blood (Man) 3+ H (Negative) Urine Nitrate Positive H (Negative) Urine Jamie
[2022-05-04] MEDS: LACTATED RINGERS 1,000 ML 30 ML IV CONT (10:35)
[2022-05-04] MEDS: LIDOCAINE HCL 2% GEL UROJET 10 ML PKG MUCOUS MEM (11:33)
--- NOTE | 2022-05-04 11:35 | W.PM.PROC2 ---
Procedure Note - Detailed Date of Procedure 05/04/22 Pre-op Diagnosis UTI, R UVJ stone, acute renal insufficiency Post-op Diagnosis Same Procedure Performed Cystoscopy, right retrograde pyelogram, right ureteral stent insertion Surgeon Sergei Nielson MD Anesthesia MAC Description of Procedure Informed consent was obtained. Patient taken the operating. She was given preoperative IV antibiotics on the floor. She was induced with MAC anesthesia. She was prepped and draped in a sterile fashion. Lidocaine urojet was instilled. Twenty F cystoscope was inserted through the urethra into bladder. The bladder revealed no mucosal abnormalities and bilateral orthotopic ureteral orifices. The urine was cloudy consistent with her known infection. We then cannulated the right ureteral orifice and retrograde pyelogram was performed showing mild hydroureteronephrosis. There was no stone seen on imaging or present cystoscopically at the UVJ. A 6 F variable length stent was placed with a curl in the renal pelvis and curl the bladder. Bladder was emptied patient was then awakened and taken the recovery room stable condition Pathology None sent Complications No immediate complications Condition Stable
[2022-05-04 12:00] LABS: Glucose Point of Care 146 mg/dl (65-105)
[2022-05-04] MEDS: FAMOTIDINE 20 MG TABLET PO ×2 (12:42→21:07)
[2022-05-04 17:21] LABS: Glucose Point of Care 131 mg/dl (65-105)
[2022-05-04] MEDS: HYDROcodone/acetaminophen (*CRX) 5-325 MG TABLET 1 TAB PO (18:08)
[2022-05-04 20:15] LABS: Glucose Point of Care 170 mg/dl (65-105)
[2022-05-05] MEDS: SODIUM CHLORIDE 0.9% IV 1,000 ML 125 ML IV CONT ×2 (00:02→08:59)
[2022-05-05] MEDS: CEFEPIME 1 GM in DEXTROSE 5% IN WATER 50 ML IVPB ×2 (04:33→13:36)
[2022-05-05 05:54] VITALS: BP 105/55; PULSE 79; RESP 18; TEMP 36.8; O2SAT 98
[2022-05-05 06:01] LABS: Basophils Percent Auto 0.2 % (0.2-1.2); Eosinophils Absolute Auto 0.1 K/mm3 (0-0.3); Eosinophils Percent Auto 1.2 % (0-4.4); Hematocrit 30.6 % (37.0-47.0); Immature Granulocyte Absolute 0.04 K/mm3 (0.00-0.031); Immature Granulocyte Percent A 0.5 % (0-0.5); Lymphocytes Absolute Auto 1.05 K/mm3 (0.9-3.2); Mean Corpuscular HGB Conc 32.7 g/dl (32-36); Mean Corpuscular Hemoglobin 30.2 pg (26-34); Mean Corpuscular Volume 92.4 fl (80-100); Mean Platelet Volume 11.7 fl (7.4-10.4); Monocytes Absolute Auto 0.6 K/mm3 (0.1-0.6); Monocytes Percent Auto 6.9 % (2.6-8.5); Neutrophils Absolute Auto 6.3 K/mm3 (1.3-6.7); Neutrophils Percent Auto 78.2 % (45.5-73.1); Platelet Count Result 146 k/mm3 (150-375); Red Blood Count 3.31 M/mm3 (4.2-5.4); Red Cell Distribution Width 13.2 % (11.5-14.5); White Blood Count 8.1 K/mm3 (4.5-10.0)
[2022-05-05 06:18] LABS: Alanine Aminotransferase 20 U/L (6-35); Albumin Level 3.2 g/dL (3.5-5.1); Alkaline Phosphatase 52 U/L (38-126); Anion Gap 4 mmol/L (8-16); Aspartate Amino Transferase 21 U/L (14-36); Blood Urea Nitrogen 18 mg/dL (7-17); Calcium 8.1 mg/dL (8.4-10.2); Carbon Dioxide 27 mmol/L (22-30); Chloride 102 mmol/L (98-107); Estimated CRCL calculation 60 ml/min; Estimated Glomerular Filt Rate 50; Glucose 132 mg/dL (65-110); Potassium 3.3 mmol/L (3.4-5.0); Sodium 133 mmol/L (137-145)
--- NOTE | 2022-05-05 07:11 | WPDUROPN2 ---
Progress Note: A&P Assessment and Plan (1) UTI (urinary tract infection): Qualifiers: Hematuria presence: with hematuria Urinary tract infection type: acute cystitis Qualified Code(s): N30.01 - Acute cystitis with hematuria Code(s): N39.0 - Urinary tract infection, site not specified Status: Acute (2) Calculus of ureterovesical junction (UVJ): Code(s): N20.1 - Calculus of ureter Status: Acute Assessment and Plan: Some question at the time of stent placement that she may have spontaneously passed her ureteral stone. I will repeat a CT scan to see if we can identify spontaneous stone passage So far, blood cultures are negative in urine culture shows infection. She can likely be discharged once cultures are complete. Subjective Subjective Date/Time Seen: 05/05/22 07:11 Tolerating ureteral stent well Review of Systems Cardiovascular: Cardiovascular: Denies chest pain, Denies lightheadedness, Denies palpitations and Denies dyspnea Respiratory: Respiratory: Denies dyspnea Gastrointestinal: Gastrointestinal: Denies diarrhea, Denies nausea and Denies vomiting Genitourinary: Genitourinary: Denies hematuria and Denies dysuria Endocrine: Endocrine: Denies palpitations Exam Const: General: no acute distress Resp: Effort & Inspection: normal respiratory effort GI: Inspection: non-distended GI Palp: No abdominal tenderness and No Guarding due to palpation present (GI) Auscultation: normal bowel sounds Objective Data Vital Signs Vital Signs: Vital Signs - 24 hr 05/04/22 08:32 05/04/22 09:45 05/04/22 08:00 Temperature 100.5 F H 99.9 F H Pulse Rate 95 94 Respiratory Rate 18 Blood Pressure 137/60 110/53 L Pulse Oximetry 98 98 Oxygen Delivery Room Air Room Air Oxygen Flow Rate 05/04/22 11:37 05/04/22 11:50 05/04/22 11:55 Temperature 99.4 F Pulse Rate 94 82 Respiratory Rate 16 14 Blood Pressure 114/57 L 101/56 L Pulse Oximetry 100 100 Oxygen Delivery Simple Face Mask Simple Face Mask Room Air Oxygen Flow Rate 6 6 05/04/22 12:05 05/04/22 12:15 05/04/22 12:30 Temperature 100.2 F H 97.2 F L 98.4 F Pulse Rate 80 81 83 Respiratory Rate 16 16 16 Blood Pressure 109/55 L 113/47 L 96/42 L Pulse Oximetry 99 96 100 Oxygen Delivery Room Air Oxygen Flow Rate 05/04/22 12:45 05/04/22 21:11 05/04/22 20:45 Temperature 98.2 F 98.4 F Pulse Rate 80 85 Respiratory Rate 16 18 Blood Pressure 107/47 L 103/52 L Pulse Oximetry 100 96 Oxygen Delivery Room Air Oxygen Flow Rate 05/05/22 05:54 Temperature 98.3 F Pulse Rate 79 Respiratory Rate 18 Blood Pressure 105/55 L Pulse Oximetry 98 Oxygen Delivery Oxygen Flow Rate Intake/Output Intake/Output: Intake & Output 05/02/22 05/03/22 05/04/22 05/05/22 23:59 23:59 23:59 23:59 Intake Total 2665 600 Output Total 850 Balance 2665 -250 Meds/Results Medications: Active Medications Generic Name Dose Route Start Last Admin Trade Name Freq PRN Reason Stop Dose Admin Acetaminophen 650 mg 05/04/22 03:24 Acetaminophen 325 Mg Tablet PO Q6H PRN Mild Pain (1-3) Hydrocodone Bitart/Acetaminophen 1 tab 05/04/22 03:24 05/04/22 18:08 Hydrocodone/Acetaminophen (*Crx) 5-325 Mg Tablet PO 1 tab Q6H PRN Administration Pain Rated 4-6 Albuterol 2.5 mg 05/04/22 03:24 Albuterol Sulfate Neb 2.5 Mg/3 Ml Inh INHALATION Q6HRT PRN Shortness Of Breath Dextrose 12.5 gm 05/04/22 03:28 Dextrose 50% 25 Gm/50 Ml Syringe IV PUSH PRN PRN Hypoglycemia Protocol Famotidine 20 mg 05/04/22 09:00 05/04/22 21:07 Famotidine 20 Mg Tablet PO 20 mg Q12HR DESMOND Administration Glucagon 1 mg 05/04/22 03:28 Glucagon For Inj 1 Mg Vial IM PRN PRN Hypoglycemia Protocol Glucose 15 gm 05/04/22 03:28 Glucose Oral Gel 15 Gm Of Glucse In 37.5 Gm Tube PO PRN PRN Hypoglycemia Protocol S
--- NOTE | 2022-05-05 07:43 | PM.IMPN ---
Progress Note: A&P Assessment and Plan (1) UTI (urinary tract infection): Qualifiers: Hematuria presence: with hematuria Urinary tract infection type: acute cystitis Qualified Code(s): N30.01 - Acute cystitis with hematuria Code(s): N39.0 - Urinary tract infection, site not specified Status: Acute Assessment and Plan: cont cefepime, follow sens, urine culture showing ecoli (2) Aortic stenosis: Code(s): I35.0 - Nonrheumatic aortic (valve) stenosis Status: Acute Assessment and Plan: asymptomatic (3) Hyperlipidemia: Code(s): E78.5 - Hyperlipidemia, unspecified Status: Acute Assessment and Plan: cont statin (4) Diabetes mellitus: Code(s): E11.9 - Type 2 diabetes mellitus without complications Status: Acute Assessment and Plan: hold metformin, accuchecks + SSI, a1c = 6 in 03/21, recheck pending BG reviewed 05/05, 132-170 (5) HTN (hypertension): Code(s): I10 - Essential (primary) hypertension Status: Acute Assessment and Plan: on the low side, hold home chlorthalidone + telmisartan (6) Hydroureteronephrosis: Code(s): N13.30 - Unspecified hydronephrosis Status: Acute Assessment and Plan: Due to right distal ureteral stone (7) Hypokalemia: Code(s): E87.6 - Hypokalemia Status: Acute Assessment and Plan: restart home potassium, replace and recheck (8) Calculus of ureterovesical junction (UVJ): Code(s): N20.1 - Calculus of ureter Status: Acute Assessment and Plan: Appreciate urology consultation, cystoscopy and right ureteral stent placed yesterday Urology is ordered a repeat CT scan to see if the stone a spontaneously passed, this is still pending Plan DVT prophylaxis with SCDs GI prophylaxis with famotidine Code status full code Subjective Date/time seen: 05/05/22 07:43 Interval history: No overnight events noted. No chest pain or shortness of breath. No nausea, vomiting or diarrhea. No fevers or chills. Review of Systems Review of Systems: 12 point review of systems was assessed and was negative except as noted in the HPI Exam Narrative: General: No acute distress, alert and oriented per baseline HEENT: Atraumatic, normocephalic, mucous membranes moist CV: Regular rate and rhythm, S1, S2 Lungs: Clear to auscultation bilaterally, no rales or crackles noted, no wheezes, good air entry Abdomen: Soft, nontender, nondistended Extremities: Normal to inspection Skin: No rashes noted, no lesions or wounds seen Psych: Euthymic, normal affect Objective Data Vital Signs Vital Signs: Vital Signs - 24 hr 05/04/22 08:32 05/04/22 09:45 05/04/22 08:00 Temperature 100.5 F H 99.9 F H Pulse Rate 95 94 Respiratory Rate 18 Blood Pressure 137/60 110/53 L Pulse Oximetry 98 98 Oxygen Delivery Room Air Room Air Oxygen Flow Rate 05/04/22 11:37 05/04/22 11:50 05/04/22 11:55 Temperature 99.4 F Pulse Rate 94 82 Respiratory Rate 16 14 Blood Pressure 114/57 L 101/56 L Pulse Oximetry 100 100 Oxygen Delivery Simple Face Mask Simple Face Mask Room Air Oxygen Flow Rate 6 6 05/04/22 12:05 05/04/22 12:15 05/04/22 12:30 Temperature 100.2 F H 97.2 F L 98.4 F Pulse Rate 80 81 83 Respiratory Rate 16 16 16 Blood Pressure 109/55 L 113/47 L 96/42 L Pulse Oximetry 99 96 100 Oxygen Delivery Room Air Oxygen Flow Rate 05/04/22 12:45 05/04/22 21:11 05/04/22 20:45 Temperature 98.2 F 98.4 F Pulse Rate 80 85 Respiratory Rate 16 18 Blood Pressure 107/47 L 103/52 L Pulse Oximetry 100 96 Oxygen Delivery Room Air Oxygen Flow Rate 05/05/22 05:54 Temperature 98.3 F Pulse Rate 79 Respiratory Rate 18 Blood Pressure 105/55 L Pulse Oximetry 98 Oxygen Delivery Oxygen Flow Rate Intake/Output Intake/Output: Intake & Output 05/02/22 05/03/22 05/04/22 05/05/22
[2022-05-05] MEDS: CHOLECALCIFEROL 1,000 UNITS TABLET 2000 UNITS PO (08:30)
[2022-05-05] MEDS: FAMOTIDINE 20 MG TABLET PO (08:30)
[2022-05-05] MEDS: POTASSIUM CHLORIDE 20 MEQ TABLET 40 MEQ PO (08:33)
[2022-05-05 08:48] LABS: Glucose Point of Care 124 mg/dl (65-105)
[2022-05-05] MEDS: PANTOPRAZOLE 40 MG TABLET PO (08:58)
[2022-05-05] MEDS: POTASSIUM CITRATE 5 MEQ TAB CR 10 MEQ PO (08:58)
[2022-05-05 11:40] LABS: Glucose Point of Care 146 mg/dl (65-105)
--- NOTE | 2022-05-05 12:32 | WPDANESPN ---
Anes - Prog Note Post-Op Date/Time: 05/05/22 12:32 Vital Signs: Last Vital Signs Temp 36.8 C 05/05/22 05:54 Pulse 79 05/05/22 05:54 Resp 18 05/05/22 05:54 BP 105/55 L 05/05/22 05:54 Pulse Ox 98 05/05/22 05:54 O2 Del Method Room Air 05/05/22 08:00 O2 Flow Rate 6 05/04/22 11:50 Pain Score (VAS): 0 I/O: Intake & Output 05/04/22 05/05/22 05/05/22 23:59 07:59 15:59 Intake Total 6188 523 0058 Output Total 850 Balance 1290 -250 1240 Laboratory Tests 05/05/22 05:19 05/05/22 05:19 05/04/22 05/04/22 05/05/22 17:18 20:06 05:19 WBC 8.1 RBC 3.31 L Hgb 10.0 L Hct 30.6 L MCV 92.4 MCH 30.2 MCHC 32.7 RDW 13.2 Plt Count 146 L MPV 11.7 H Immature Gran % (Auto) 0.5 Neut % (Auto) 78.2 H Lymph % (Auto) 13.0 L [place] % (Auto) 6.9 Eos % (Auto) 1.2 Baso % (Auto) 0.2 Lymph # (Auto) 1.05 [place] # (Auto) 0.6 Eos # (Auto) 0.1 Baso # (Auto) 0.0 Abs Immat Gran (auto) 0.04 H Absolute Neuts (auto) 6.3 Absolute Nucleated RBC 0.0 Nucleated RBC % 0.0 Sodium Potassium Chloride Carbon Dioxide Anion Gap BUN Creatinine Estim Creat Clear Calc Estimated GFR Glucose POC Capillary Glucose 131 H 170 H Calcium Total Bilirubin AST ALT Alkaline Phosphatase Total Protein Albumin 05/05/22 05/05/22 05/05/22 05:19 08:44 11:38 WBC RBC Hgb Hct MCV MCH MCHC RDW Plt Count MPV Immature Gran % (Auto) Neut % (Auto) Lymph % (Auto) [place] % (Auto) Eos % (Auto) Baso % (Auto) Lymph # (Auto) [place] # (Auto) Eos # (Auto) Baso # (Auto) Abs Immat Gran (auto) Absolute Neuts (auto) Absolute Nucleated RBC Nucleated RBC % Sodium 133 L Potassium 3.3 L Chloride 102 Carbon Dioxide 27 Anion Gap 4 L BUN 18 H Creatinine 1.10 H Estim Creat Clear Calc 60 Estimated GFR 50 L Glucose 132 H POC Capillary Glucose 124 H 146 H Calcium 8.1 L Total Bilirubin 1.0 AST 21 ALT 20 Alkaline Phosphatase 52 Total Protein 6.0 L Albumin 3.2 L Microbiology 05/03/22 23:43 Unspecified Urine Culture - Final Escherichia Coli 05/04/22 08:24 Blood Blood Culture - Preliminary 05/04/22 05:36 Blood Blood Culture - Preliminary Patient Feedback: Patient satisfied with anesthetic care.
--- NOTE | 2022-05-05 13:25 | PM.DS ---
DS: Admitting Diagnosis Discharge Date 05/05/22 Admitting Diagnosis flank pain DS: Discharge Diagnosis Discharge Diagnosis (1) UTI (urinary tract infection): Qualifiers: Hematuria presence: with hematuria Urinary tract infection type: acute cystitis Qualified Code(s): N30.01 - Acute cystitis with hematuria Code(s): N39.0 - Urinary tract infection, site not specified Status: Acute Assessment and Plan: cont cefepime, follow sens, urine culture showing ecoli (2) Aortic stenosis: Code(s): I35.0 - Nonrheumatic aortic (valve) stenosis Status: Acute Assessment and Plan: asymptomatic (3) Hyperlipidemia: Code(s): E78.5 - Hyperlipidemia, unspecified Status: Acute Assessment and Plan: cont statin (4) Diabetes mellitus: Code(s): E11.9 - Type 2 diabetes mellitus without complications Status: Acute Assessment and Plan: hold metformin, accuchecks + SSI, a1c = 6 in 03/21, recheck pending BG reviewed 05/05, 132-170 (5) HTN (hypertension): Code(s): I10 - Essential (primary) hypertension Status: Acute Assessment and Plan: on the low side, hold home chlorthalidone + telmisartan (6) Hydroureteronephrosis: Code(s): N13.30 - Unspecified hydronephrosis Status: Acute Assessment and Plan: Due to right distal ureteral stone (7) Hypokalemia: Code(s): E87.6 - Hypokalemia Status: Acute Assessment and Plan: restart home potassium, replace and recheck (8) Calculus of ureterovesical junction (UVJ): Code(s): N20.1 - Calculus of ureter Status: Acute Assessment and Plan: Appreciate urology consultation, cystoscopy and right ureteral stent placed yesterday Urology is ordered a repeat CT scan to see if the stone a spontaneously passed, this is still pending Plan DVT prophylaxis with SCDs GI prophylaxis with famotidine Code status full code DS: Summary Hospital Course Hospital Course: 67-year-old female with past medical history significant for diabetes and recurrent kidney stones is presenting with flank pain. She was noted to have an obstructed kidney stone. She started on prophylactic antibiotics and taken for cystoscopy and stent placement. All symptoms resolved. Repeat CT scan showed that the stone had spontaneously passed. Urology was consulted and recommended oral antibiotics, discharged follow-up outpatient for stent removal. She was discharged on Augmentin, see above and [facility] for details. Time Spent with Patient Time attestation: Total time spent providing and/or coordinating discharge services: Exam Narrative: General: No acute distress, alert and oriented per baseline HEENT: Atraumatic, normocephalic, mucous membranes moist CV: Regular rate and rhythm, S1, S2 Lungs: Clear to auscultation bilaterally, no rales or crackles noted, no wheezes, good air entry Abdomen: Soft, nontender, nondistended Extremities: Normal to inspection Skin: No rashes noted, no lesions or wounds seen Psych: Euthymic, normal affect DS: Data Data Completed and Pending Labs on day of discharge: Labs from last 24 hours 05/05/22 05/05/22 05/05/22 11:38 08:44 05:19 WBC RBC Hgb Hct MCV MCH MCHC RDW Plt Count MPV Immature Gran % (Auto) Neut % (Auto) Lymph % (Auto) Harrison % (Auto) Eos % (Auto) Baso % (Auto) Lymph # (Auto) Harrison # (Auto) Eos # (Auto) Baso # (Auto) Abs Immat Gran (auto) Absolute Neuts (auto) Absolute Nucleated RBC Nucleated RBC % Sodium 133 L Potassium 3.3 L Chloride 102 Carbon Dioxide 27 Anion Gap 4 L BUN 18 H Creatinine 1.10 H Estim Creat Clear Calc 60 Estimated GFR 50 L Glucose 132 H POC Capillary Glucose 146 H 124 H Calcium 8.1 L Total Bilirubin 1.0 AST 21 ALT 20 Alkaline Phosphatas
[2022-05-05 14:00] VITALS: BP 117/55; PULSE 78; RESP 18; TEMP 37; O2SAT 100
== END 2022-05-05 14:45 | disposition home or self-care (01) ==
LOC: ANHED 05-04 02:23 → ANH2MED 05-04 03:42
PROVIDERS: Emergency Medicine; Urology; Admitting Provider Internal Medicine; Emergency Provider Physician Assistant; PCP Physician Assistant Medical; Visit Provider Student in an Organized Health Care Education/Training Program
PROC: (CPT 52352; principal; 2022-05-04 11:00)
DX: N13.2 Hydronephrosis with renal and ureteral calculous obstruction (principal); N39.0 Urinary tract infection, site not specified; B96.20 Unspecified Escherichia coli [E. coli] as the cause of diseases classified elsewhere; I35.0 Nonrheumatic aortic (valve) stenosis; E78.5 Hyperlipidemia, unspecified; E11.9 Type 2 diabetes mellitus without complications; I10 Essential (primary) hypertension; E87.6 Hypokalemia; K80.20 Calculus of gallbladder without cholecystitis without obstruction; K80.50 Calculus of bile duct without cholangitis or cholecystitis without obstruction; K42.9 Umbilical hernia without obstruction or gangrene; E66.01 Morbid (severe) obesity due to excess calories; Z68.42 Body mass index [BMI] 45.0-49.9, adult; F10.90 Alcohol use, unspecified, uncomplicated; Z79.84 Long term (current) use of oral hypoglycemic drugs; Z79.899 Other long term (current) drug therapy
CPT/HCPCS: 52332; 36415; 74176; 74420; 80053; 81001; 82948; 85025; 87040; 87077; 87086; 87186; 96361; 96365; 96367; 96375; 99285; A9270; C1769; C2617; G0378; J0131; J0692; J0696; J2270; J2405; J2704; J3010; J7030; J7120

== ENCOUNTER → 2022-05-30 15:04 | Outpatient (CLI) | payer BC, MEDICARE, SELFPAY ==
--- NOTE | ~2022-05-30 | MM_ITS ---
EXAMINATION: MM screening karie BI w [place] HISTORY: Screening mammogram TECHNIQUE: Craniocaudal and mediolateral oblique 3-D tomosynthesis images were obtained and synthetic 2-D images were generated. CAD analysis was submitted and interpreted. COMPARISON: No prior mammogram is available for comparison at this institution. BREAST PARENCHYMAL COMPOSITION: The breasts are almost entirely fatty. FINDINGS: There is no evidence of suspicious mass, calcification, or architectural distortion to sugg est malignancy in either breast. There has been no suspicious interval change. IMPRESSION: 1. No mammographic evidence of malignancy. 2. Recommend routine screening mammography in one year. BI-RADS Category 1: Negative Reviewed, dictated and finalized at location A.
== END ==
PROVIDERS: PCP Family Medicine; Visit Provider Physician Assistant Medical
DX: Z12.31 Encounter for screening mammogram for malignant neoplasm of breast (principal)
CPT/HCPCS: 77063; 77067

== ENCOUNTER 2022-08-22 08:17 | Outpatient (CLI) | payer BC, MEDICARE, SELFPAY ==
--- NOTE | ~2022-08-22 | XR_ITS ---
EXAMINATION: XR abdomen/kub 1V INDICATION: Renal stone TECHNIQUE: Supine views of the abdomen were obtained on 2 radiographs. COMPARISON: 03/11/2022 FINDINGS: Previously described right-sided urolithiasis is not definitely seen. There appear to be st ones measuring up to 4 mm of the left kidney. No stones are identified in the expected location of th e ureters or in the urinary bladder. There is a phlebolith of the left pelvis. The visualized lung ba ses are clear. IMPRESSION: 1. Left nephrolithiasis. Reviewed, dictated and finalized at location [] IMPRESSION: 1. Left nephrolithiasis.
== END 2022-08-22 08:18 | disposition home or self-care (01) ==
PROVIDERS: PCP Family Medicine; Visit Provider Urology
DX: N20.0 Calculus of kidney (principal)
CPT/HCPCS: 74018

== ENCOUNTER 2023-03-10 08:28 | Outpatient (CLI) | payer BC, MEDICARE, SELFPAY ==
--- NOTE | 2023-03-10 08:44 | ECHO_ITS ---
Patient Info Name: Beena Johnson Age: 68 years : 1955 Gender: Female Ht: 66 in Wt: 280 lbs BSA: 2.50 m2 HR: 74 bpm BP: 106 / 68 mmHg Technical Quality: Good Exam Date: 03/10/2023 10:12 AM Exam Location: Echo Lab Patient Status: Outpatient Admit Date: 03/10/2023 Staff Ordering Physician: Lalit Griffith DO Global Sales Executive: Enma Lewis RDCS Attending Provider: Lalit Griffith DO Referring Physician: Nacho ESTEBAN; Exam Type: CA echo doppler color flow Study Info Indications I35.0 - Nonrheumatic aortic (valve) stenosis Complete two-dimensional, color flow and Doppler transthoracic echocardiogram is performed. Summary 1. Complete two-dimensional, color flow and Doppler transthoracic echocardiogram is performed. 2. Left ventricular chamber dimension is normal. 3. Left ventricular systolic function is normal, estimated at 60-65%. 4. The left ventricular diastolic function is grade I diastolic dysfunction. 5. E/e' 8 is minimally elevated. 6. Left atrial chamber dimension is mildly enlarged. 7. There is severe aortic valve sclerosis. 8. There is moderate aortic valve stenosis with a peak velocity of 302 cm/s, mean gradient of 21 mmHg, and aortic valve area of 1.3 cm2. 9. There is mild aortic valve regurgitation. 10. There is trace tricuspid valve regurgitation. 11. No pulmonary hypertension, estimated pulmonary arterial systolic pressure is 36 mmHg. Left Ventricle E/e' 8 is minimally elevated. Left ventricular chamber dimension is normal. Left ventricular systolic function is normal, estimated at 60-65%. The left ventricular diastolic function is grade I diastolic dysfunction. Right Ventricle Right ventricular systolic function is normal and with normal TAPSE 2.4 cm. Right ventricular chamber dimension is normal. Left Atria Left atrial chamber dimension is mildly enlarged. Right Atria Right atrial chamber dimension is normal. Aortic Valve The aortic valve is trileaflet. There is severe aortic valve sclerosis. There is moderate aortic valve stenosis with a peak velocity of 302 cm/s, mean gradient of 21 mmHg, and aortic valve area of 1.3 cm2. There is mild aortic valve regurgitation. Pulmonic Valve There is no pulmonic regurgitation. Mitral Valve There is no mitral valve stenosis. There is no mitral valve regurgitation. Tricuspid Valve There is trace tricuspid valve regurgitation. No pulmonary hypertension, estimated pulmonary arterial systolic pressure is 36 mmHg. Pericardium/Pleural There is no pericardial effusion. Inferior Vena Cava Normal inferior vena cava with >50% collapse upon inspiration consistent with normal right atrial pressure, 5 mmHg. Aorta The aortic root size at the sinus of Valsalva is normal. Left Ventricular Outflow Tract Name Value Normal LVOT 2D LVOT Diameter 2.1 cm LVOT Doppler LVOT Peak Gradient 7 mmHg LVOT Mean Gradient 4 mmHg LVOT VTI 26 cm LVOT VTI/AV VTI Ratio 0.4 LVOT Stroke Volume 89 ml LVOT CO 20.6 l/min LVOT CI 8.3 l/min/m2 Pu
== END 2023-03-10 08:29 | disposition home or self-care (01) ==
LOC: ANHCARD 08:30
PROVIDERS: PCP Family Medicine; Visit Provider Internal Medicine Cardiovascular Disease
DX: I35.1 Nonrheumatic aortic (valve) insufficiency (principal)
CPT/HCPCS: 93306

== ENCOUNTER 2023-08-28 10:44 | Outpatient (CLI) | payer BC, MEDICARE, SELFPAY ==
--- NOTE | ~2023-08-28 | XR_ITS ---
XR abdomen/kub 1V Ordering provider: Chuck Cai MD History: . RENAL STONE 1 yr follow up, no current complaints . Comparison: August 22, 2022 FINDINGS: BOWEL: Nonobstructive bowel gas pattern. ORGANOMEGALY: None. SIGNIFICANT PATHOLOGIC CALCIFICATIONS: Tiny calcifications seen in the left renal area which may be stones. OTHER: No free air is seen under the diaphragm. Degenerative changes of the spine. IMPRESSION: NO ACUTE ABDOMINAL FINDINGS. Tiny stones in the left kidney. Reviewed, dictated and finalized at location A.
== END 2023-08-28 10:45 | disposition home or self-care (01) ==
PROVIDERS: PCP Family Medicine; Visit Provider Urology
DX: N20.0 Calculus of kidney (principal)
CPT/HCPCS: 74018

== ENCOUNTER 2024-05-19 05:49 | Emergency (ER) | payer BC, MEDICARE, SELFPAY ==
--- OUTSIDE RECORDS SUMMARY | 2024-05-19 05:51 | XMS_ITS | Encounter Summary ---
Author Organization [facility] [employer] [facility] , [facility] Address [address] [place] [phone] Phone Care Team Providers Care Insurance Sales Executive Name Role Phone Brien Bonner MD Primary Care Provider [phone] Reason for Visit * Reason Comments Med Refill Encounter Details Date Type Department Care Team (Late st Contact Info) Description 09/06/2023 Refill [place] [employer] [facility], [facility] [address] [place] [phone] Josh Mendoza DO [address] [phone] Social History Tobacco Use Types Packs/Day Years Used Date Smoking Tobacco: Never Alcohol Use Standard Drinks/Week Comments Yes 0 (1 standard drink = 0.6 oz pure alcohol) Alcoholic Drinks/day: Occasional social drink Comments Unknown Sex and Gender Information Value Date Recorded Sex Assigned at Not on file Legal Sex Female 2:52 PM EDT Gender Identity Not on file Sexual Orientation Not on file documented as of this encounter Plan of Treatment Not on file documented as of this encounter Visit Diagnoses Not on filedocumented in this encounter Care Teams Insurance Sales Executive Relationship Specialty Start Date End Date Brien Bonner MD [address] [address] PCP - General Family Medicine 03/28/23 documented as of this encounter
--- OUTSIDE RECORDS SUMMARY | 2024-05-19 05:51 | XMS_ITS | Encounter Summary ---
Author Organization [facility] [employer] [facility] , [facility] Address [address] [place] [phone] Phone Care Team Providers Care Account Management Assistant Name Role Phone Brien Bonner MD Primary Care Provider Reason for Visit * Reason Comments Med Refill Encounter Details Date Type Department Care Team (Late st Contact Info) Description 06/19/2023 Refill [place] [employer] [facility], [facility] [address] [place] [phone] Josh Mendoza DO [address] [phone] Social History Tobacco Use Types [...] on filedocumented in this encounter Care Teams Account Management Assistant Relationship Specialty Start Date End Date Brien Bonner MD [address] [place] [address] PCP - General Family Medicine 03/28/23 documented as of this encounter
--- OUTSIDE RECORDS SUMMARY | 2024-05-19 05:51 | XMS_ITS | Encounter Summary ---
Author Organization [facility] [employer] [facility] , [facility] Address [address] [place] [phone] Phone Care Team Providers Care Day Spa Manager Name Role Phone Brien Bonner MD Primary Care Provider [phone] Reason for Visit * Reason Comments Med Refill Encounter Details Date Type Department Care Team (Late st Contact Info) Description 12/10/2023 Refill [place] [employer] [facility], [facility] [address] [place] [phone] Josh Mendoza DO [address] [phone] Social History Tobacco Use Types [...] on filedocumented in this encounter Care Teams Day Spa Manager Relationship Specialty Start Date End Date Brien Bonner MD [address] [address] PCP - General Family Medicine 03/28/23 documented as of this encounter
--- OUTSIDE RECORDS SUMMARY | 2024-05-19 05:51 | XMS_ITS | Encounter Summary ---
Author Organization [facility] [employer] , [facility] Address [address] [place] [phone] Phone Care Team Providers Care Rental Coordinator Name Role Phone Brien Bonner MD Primary Care Provider [phone] Reason for Visit * Reason Comments Med Refill Encounter Details Date Type Department Care Team (Late st Contact Info) Description 10/22/2020 Refill [place] [employer] [facility], [facility] [address] [place] [phone] [place] [address] [place] [phone] Social History Tobacco Use Types Packs/Day [...] on filedocumented in this encounter Care Teams Rental Coordinator Relationship Specialty Start Date End Date Brien Bonner MD [address] [place] [address] PCP - General Family Medicine 03/28/23 documented as of this encounter
--- OUTSIDE RECORDS SUMMARY | 2024-05-19 05:51 | XMS_ITS | CONTINUITY OF CARE DOCUMENT ---
Author Name evelio fraser Address Unknown Organization [facility] Address [address] [employer] [address] [employer] [facility] [address] [place] [address] Phone [phone] Care Team Providers Care Candy Cooker Helper Name Role Phone Guero ALEJANDRA, Michell Unavailable [phone] SOHEILA MCRAE MD Unavailable PITO CALLAWAY MD Unavailable INSURANCE PROVIDERS Payer name Policy type / Coverage type Vaughan red green party ID [id number]
--- OUTSIDE RECORDS SUMMARY | 2024-05-19 05:51 | XMS_ITS | Clinical Summary ---
Author Organization [facility] Address [address] [place] [phone] Care Team Providers Care Improvement Analyst Name Role Phone Brien Bonner MD Primary Care Provider [phone] Medications tamsulosin (FLOMAX) 0.4 MG 24 hr capsule Take 1 capsule (0.4 mg total) by mouth every night 90 capsule 1 09/21/2021 Active telmisartan (MICARDIS) 40 MG tablet TAKE 1 TABLET BY MOUTH EVERYDAY AT BEDTIME 90 tablet 1 10/14/2022 Active chlorthalidone (HYGROTON) 50 MG tablet TAKE 1 TABLET BY MOUTH EVERY DAY 90 tablet 11/14/2022 Active simvastatin (ZOCOR) 20 MG tablet TAKE 1 TABLET BY MOUTH EVERYDAY AT BEDTIME 90 tablet 1 01/16/2023 Active metFORMIN (GLUCOPHAGE) 500 MG tablet Take 1 tablet (500 mg total) by mouth in the morning and 1 tablet (500 mg total) in the evening. Take with meals. 180 tablet 1 03/20/2023 Active potassium citrate 10 MEQ (1080 MG) CR tablet Take 1 tablet (10 mEq total) by mouth in the morning and 1 tablet (10 mEq total) in the evening. Take with meals. 180 tablet 1 03/29/2023 Active Social History Tobacco Use Types Packs/Day Years Used Date Smoking Tobacco: Never Alcohol Use Standard Drinks/Week Comments Yes 0 (1 standard drink = 0.6 oz pure alcohol) Alcoholic Drinks/day: Occasional social drink Comments Unknown Sex and Gender Information Value Date Recorded Sex Assigned at Not on file Legal Sex Female 2:52 PM EDT Gender Identity Not on file Sexual Orientation Not on file Last Filed Vital Signs Vital Sign Reading Time Taken Comments Blood Pressure 118/58 03/28/2023 3:46 PM RADIO TIME SALESPERSON Pulse 88 03/28/2023 3:46 PM RADIO TIME SALESPERSON Temperature 36.1 C (97 F) 03/28/2023 3:46 PM RADIO TIME SALESPERSON Respiratory Rate 18 03/28/2023 3:46 PM RADIO TIME SALESPERSON Oxygen Saturation 96% 03/28/2023 3:46 PM RADIO TIME SALESPERSON Inhaled Oxygen Concentration - - Weight 129 kg (284 lb) 03/28/2023 3:46 PM RADIO TIME SALESPERSON Height 167.6 cm (5' 6 ) 09/21/2021 12:34 PM CDT Body Mass Index 45.84 09/21/2021 12:34 PM CDT Plan of Treatment Health Maintenance Due Date Last Done Comments Breast Cancer Screening 1955 Pneumococcal Vaccine: 65+ Ye ars (1 of 2 - PCV) 01/04/1962 Colorectal Cancer Screening: Annual FOBT 01/04/2005 Colorectal Cancer Screening: Colonoscopy 01/04/2005 Colorectal Cancer Screening: Sigmoidoscopy 01/04/2005 Influenza Vaccine (#1) 2023 11/27/2016 Hepatitis B Vaccine Aged Out No longe r eligible based on patient's age to complete this topic Insurance MEDICARE [facility] Care Teams Improvement Analyst Relationship Specialty Start Date End Date Brien Bonner MD [address] [place] [address] [address] [place], [place] [id number] PCP - General Family Medicine 03/28/23
--- OUTSIDE RECORDS SUMMARY | 2024-05-19 05:51 | XMS_ITS | Encounter Summary ---
Author Organization [facility] [employer] , [facility] Address [address] [place] [phone] Phone Care Team Providers Care Operations Superintendent Name Role Phone Brien Bonner MD Primary Care Provider [phone] Reason for Visit * Reason Comments Med Refill Encounter Details Date Type Department Care Team (Late st Contact Info) Description 08/17/2020 Refill [place] [employer] [facility], [facility] [address] [place] [phone] [place] [address] [place] [phone] Social History Tobacco Use Types Packs/Day [...] on filedocumented in this encounter Care Teams Operations Superintendent Relationship Specialty Start Date End Date Brien Bonner MD [address] [address] PCP - General Family Medicine 03/28/23 documented as of this encounter
--- OUTSIDE RECORDS SUMMARY | 2024-05-19 05:51 | XMS_ITS | Encounter Summary ---
Author Organization [facility] [employer] , [facility] Address [address] [place] [phone] Phone Care Team Providers Care Customer Relations Advisor Name Role Phone Brien Bonner MD Primary Care Provider [phone] Reason for Visit * Reason Comments Med Refill Encounter Details Date Type Department Care Team (Late st Contact Info) Description 09/19/2020 Refill [place] [employer] [facility], [facility] [address] [place] [phone] [place] [address] [place] [phone] Social History Tobacco Use Types Packs/Day [...] on filedocumented in this encounter Care Teams Customer Relations Advisor Relationship Specialty Start Date End Date Brien Bonner MD [address] [address] PCP - General Family Medicine 03/28/23 documented as of this encounter
--- OUTSIDE RECORDS SUMMARY | 2024-05-19 05:51 | XMS_ITS | Encounter Summary ---
Author Organization [facility] Maintenance Assistant [facility] , [facility] Address [address] [place] [phone] Phone Care Team Providers Care Mobile Application Engineer Name Role Phone Brien Bonner MD Primary Care Provider [phone] Reason for Visit * Reason Comments Med Refill Encounter Details Date Type Department Care Team (Late st Contact Info) Description 05/10/2023 Refill [place] [employer], [facility] [address] [place] [phone] Josh Mendoza DO [address] [phone] Social History Tobacco Use Types [...] on filedocumented in this encounter Care Teams Mobile Application Engineer Relationship Specialty Start Date End Date Brien Bonner MD [address] [place] [address] PCP - General Family Medicine 03/28/23 documented as of this encounter
[2024-05-19 05:53] VITALS: BP 153/69; PULSE 70; RESP 16; TEMP 36.6; O2SAT 100
--- NOTE | 2024-05-19 06:10 | ED_ITS ---
HPI - General Adult General Chief complaint: Dental/Oral Stated complaint: i have a toothache Time Seen by Provider: 05/19/24 06:06 History of Present Illness HPI narrative: Patient is a 69-year-old female who presents emergency department chief complaint of lower tooth pain patient reports that she had a lower molar on the mandible on the left side started hurting a few days ago the patient reports she has not been able see her dentist yet and reports been taking ibuprofen this is been not improving the patient reports no drainage denies trismus denies shortness of breath Related Data Home Medications ?Medication ?Instructions ?Recorded ?Confirmed ?Last Taken ?Type cholecalciferol (vitamin D3) 50 2,000 unit PO DAILY 01/01/19 05/19/24 05/19/24 History mcg (2,000 unit) tablet vibegron 75 mg tablet (Gemtesa) 75 mg PO DAILY 03/22/22 05/19/24 05/19/24 History Allergies Allergy/AdvReac Type Severity Reaction Status Date / Time No Known Allergies Allergy Verified 05/19/24 05:51 Review of Systems Review of Systems: A 10 system review of systems was completed on the patient and is negative except for what is stated in the HPI. Nursing and ancillary documentation was reviewed. [facility] Past Medical History Medical History BMI 40.0-44.9, adult Moderate aortic stenosis Arthritis back and bilat knees Morbid obesity with BMI of 40.0-44.9, adult Recurrent kidney stones Recurrent UTI HLD (hyperlipidemia) HTN (hypertension) Kidney stone Surgical History Surgical History History of tonsillectomy and adenoidectomy History of dilation and curettage History of History of total right hip arthroplasty History of colonoscopy Family History Family History Father Cerebrovascular accident Aneurysm Mother Alzheimer disease Pacemaker Social History Social History Smoking status: Never smoker Alcohol intake: current Drinks per week: 0 Alcohol use details: Few times per year Substance use: never Last use: 1 beer a month maybe Do You Feel Safe in your Home?: Yes Lack of Transportation: No Lack of Food: Never True Current Housing: I Have Housing Concerned About Future Housing: No Difficulty Paying Gas/Electric Bills: No Difficulty Paying for Meds: No Currently Unemployed: No Education: High School Diploma/GED Difficulty w/ Childcare or Family Care: No Living arrangements: with family Additional living arrangements comments: HUSB AND SON Occupation/Education: occupation Additional occupation/education comments: Works at [employer]. Gender identity (if verbalized by the patient): Female Spiritual care concerns: No Agree to blood products: No Exam Narrative: GENERAL: Well-appearing, well-nourished, and in no acute distress. HEAD: Normocephalic, atraumatic. EYES: PERRLA and EOMI. ENT: Nares clear, no rhinorrhea or epistaxis. Mucous membranes moist. There is dental caries present in the left lower pole or no crepitance no fluctuance no drainable abscess no trismus NECK: Supple. CHEST: Clear to auscultation. No respiratory distress. HEART: Regular rate and rhythm. No murmur heard. Normal peripheral pulses. ABDOMEN: Soft, nontender, nondistended, normal active bowel sounds. EXTREMITIES: Normal range of motion. No edema. SKIN: Warm, dry, no rash. NEURO: No focal deficits. Alert and oriented x3. PSYCH: Normal mood and affect. Course Vital Signs Vital signs: Vital Signs Temperature 36.6 C 05/19/24 05:53 Pulse Rate 70 05/19/24 05:53 Respiratory Rate 16 05/19/24 05:53 Blood Pressure 153/69 H 05/19/24 05:53 Pulse Oximetry 100 05/19/24 05:53 Temperature 36.6 C 05/19/24 05:53 Pulse Rate 70 05/19/24 05:53 Respiratory Rate 16 05/19/24 05:53 Blood Pressure 153/69 H 05/19/24 05:53 Pulse Oximetry 100 05/19/24 05:53 Medical Decision Making MDM Narrative Medical decision making narrative: The patient was started on oral antibiotics and we will be discharged follow-up with dentist as soon as possible Vital Signs Vital Signs: Vital Signs Temperature 36.6 C 05/19/24 05:53 Pulse Rate 70 05/19/24 05:53 Respiratory Rate 16 05/19/24 05:53 Blood Pressure 153/69 H 05/19/24 05:53 Pulse Oximetry 100 05/19/24 05:53 Temperature 36.6 C 05/19/24 05:53 Pulse Rate 70 05/19/24 05:53 Respiratory Rate 16 05/19/24 05:53 Blood Pressure 153/69 H 05/19/24 05:53 Pulse Oximetry 100 05/19/24 05:53 Discharge Plan Discharge Clinical Impression: Abscess, dental Patient Disposition: Home, Self-Care Condition: Stable Instructions: Antibiotic Form, Dental Abscess (ED) Additional Instructions: Please follow-up with your dentist as soon as possible Patient Language: Icelandic Prescriptions: New amoxicillin 500 mg capsule 500 mg PO Q12H Qty: 20 0RF No Action Gemtesa 75 mg tablet 75 mg PO DAILY telmisartan 40 mg tablet 40 mg PO HS Qty: 90 3RF potassium citrate 10 mEq (1,080 mg) tablet extended release 10 meq PO DAILY Qty: 90 0RF cholecalciferol (vitamin D3) 2,000 unit Tablet 2,000 unit PO DAILY chlorthalidone 50 mg tablet 50 mg PO DAILY Qty: 90 1RF omeprazole 40 mg capsule,delayed release(DR/EC) 40 mg PO DAILY Qty: 90 1RF metformin 500 mg tablet 500 mg PO BID Qty: 180 3RF simvastatin [Zocor] 20 mg tablet 20 mg PO HS Qty: 90 3RF Follow-up/Referrals: Brien Bonner MD [Primary Care Provider] - Time of Disposition: 06:13
[2024-05-19] MEDS: HYDROcodone/acetaminophen (*CRX) 5-325 MG TABLET 1 TAB PO (06:15)
[2024-05-19] MEDS: AMOXICILLIN 500 MG CAPSULE PO (06:15)
--- OUTSIDE RECORDS SUMMARY | 2024-05-19 06:21 | XMS_ITS | Encounter Summary ---
Author Organization [facility] [employer] , [facility] Address [address] [place] [phone] Phone Care Team Providers Care Product Safety Administrator Name Role Phone Brien Bonner MD Primary Care Provider [phone] Reason for Visit * Reason Comments Med Refill Encounter Details Date Type Department Care Team (Late st Contact Info) Description 10/22/2020 Refill [place] [employer] [facility], [facility] [address] [place] [phone] [place] [address] [place] [phone] Social History Tobacco Use Types Packs/Day [...] on filedocumented in this encounter Care Teams Product Safety Administrator Relationship Specialty Start Date End Date Brien Bonner MD [address] [place] [address] [place] [address] PCP - General Family Medicine 03/28/23 documented as of this encounter
--- OUTSIDE RECORDS SUMMARY | 2024-05-19 06:21 | XMS_ITS | Encounter Summary ---
Author Organization [facility] [employer] [facility] , [facility] Address [address] [place] [phone] Phone Care Team Providers Care Hospitality Director Name Role Phone Brien Bonner MD Primary Care Provider [phone] Reason for Visit * Reason Comments Med Refill Encounter Details Date Type Department Care Team (Late st Contact Info) Description 09/06/2023 Refill [place] [employer] [facility], [facility] [address] [place] [phone] Josh Mendoza DO [address] [phone] Social History Tobacco Use Types [...] on filedocumented in this encounter Care Teams Hospitality Director Relationship Specialty Start Date End Date Brien Bonner MD [address] [place] [address] PCP - General Family Medicine 03/28/23 documented as of this encounter
--- OUTSIDE RECORDS SUMMARY | 2024-05-19 06:21 | XMS_ITS | Encounter Summary ---
Author Organization [facility] [employer] [facility] , [facility] Address [address] [place] [phone] Phone Care Team Providers Care Car Rental Manager Name Role Phone Brien Bonner MD Primary Care Provider [phone] Reason for Visit * Reason Comments Med Refill Encounter Details Date Type Department Care Team (Late st Contact Info) Description 12/10/2023 Refill [place] [employer] [facility], [facility] [address] [place] [phone] Josh Mendoza DO [address] [phone] Social History Tobacco Use Types [...] on filedocumented in this encounter Care Teams Car Rental Manager Relationship Specialty Start Date End Date Brien Bonner MD [address] [place] [address] PCP - General Family Medicine 03/28/23 documented as of this encounter
--- OUTSIDE RECORDS SUMMARY | 2024-05-19 06:21 | XMS_ITS | Clinical Summary ---
Author Organization [facility] Facility Address [address] [place] [address] Care Team Providers Care Treasury Analyst Name Role Phone Brien Bonner MD Primary Care Provider [phone] Medications tamsulosin (FLOMAX) 0.4 MG 24 hr [...] Comments Blood Pressure 118/58 03/28/2023 3:46 PM HIGH PRESSURE KETTLE OPERATOR Pulse 88 03/28/2023 3:46 PM HIGH PRESSURE KETTLE OPERATOR Temperature 36.1 C (97 F) 03/28/2023 3:46 PM HIGH PRESSURE KETTLE OPERATOR Respiratory Rate 18 03/28/2023 3:46 PM HIGH PRESSURE KETTLE OPERATOR Oxygen Saturation 96% 03/28/2023 3:46 PM HIGH PRESSURE KETTLE OPERATOR Inhaled Oxygen Concentration - - Weight 129 kg (284 lb) 03/28/2023 3:46 PM HIGH PRESSURE KETTLE OPERATOR Height 167.6 cm (5' 6 ) 09/21/2021 [...] age to complete this topic Insurance MEDICARE [facility] Care Teams Treasury Analyst Relationship Specialty Start Date End Date Brien Bonner MD [address] [place] [address] [address] [place], [place] [id number] PCP - General Family Medicine 03/28/23
--- OUTSIDE RECORDS SUMMARY | 2024-05-19 06:21 | XMS_ITS | Encounter Summary ---
Author Organization [facility] [employer] , [facility] Address [address] [place] [phone] Phone Care Team Providers Care Licensed Tax Consultant Name Role Phone Brien Bonner MD Primary Care Provider [phone] Reason for Visit * Reason Comments Med Refill Encounter Details Date Type Department Care Team (Late st Contact Info) Description 08/17/2020 Refill [place] [employer] [facility] [place], [facility] [address] [place] [phone] [place] [address] [place] [phone] Social History Tobacco Use Types Packs/Day [...] on filedocumented in this encounter Care Teams Licensed Tax Consultant Relationship Specialty Start Date End Date Brien Bonner MD [address] [address] PCP - General Family Medicine 03/28/23 documented as of this encounter
--- OUTSIDE RECORDS SUMMARY | 2024-05-19 06:21 | XMS_ITS | Encounter Summary ---
Author Organization [facility] [email or web address] [facility] , [facility] Address [address] [place] [phone] Phone Care Team Providers Care Commercial Makeup Artist Name Role Phone Brien Bonner MD Primary Care Provider [phone] Reason for Visit * Reason Comments Med Refill Encounter Details Date Type Department Care Team (Late st Contact Info) Description 06/19/2023 Refill [place] [employer] [facility], [facility] [address] [place] [phone] Josh Mendoza DO [address] [phone] Social History Tobacco Use Types [...] on filedocumented in this encounter Care Teams Commercial Makeup Artist Relationship Specialty Start Date End Date Brien Bonner MD [address] [place] [address] PCP - General Family Medicine 03/28/23 documented as of this encounter
--- OUTSIDE RECORDS SUMMARY | 2024-05-19 06:21 | XMS_ITS | Encounter Summary ---
Author Organization [facility] [employer] [facility] , [facility] Address [address] [place] [phone] Phone Care Team Providers Care Germination Testing Manager Name Role Phone Brien Bonner MD Primary Care Provider [phone] Reason for Visit * Reason Comments Med Refill Encounter Details Date Type Department Care Team (Late st Contact Info) Description 05/10/2023 Refill [place] [employer] [facility], [facility] [address] [place] [phone] Josh Mendoza DO [address] [phone] Social History Tobacco Use Types [...] on filedocumented in this encounter Care Teams Germination Testing Manager Relationship Specialty Start Date End Date Brien Bonner MD [address] [address] PCP - General Family Medicine 03/28/23 documented as of this encounter
--- OUTSIDE RECORDS SUMMARY | 2024-05-19 06:21 | XMS_ITS | Encounter Summary ---
Author Organization [facility] [employer] , [facility] Address [address] [place] [phone] Phone Care Team Providers Care Handle Assembler Name Role Phone Brien Bonner MD Primary Care Provider [phone] Reason for Visit * Reason Comments Med Refill Encounter Details Date Type Department Care Team (Late st Contact Info) Description 09/19/2020 Refill [place] [employer] [facility], [facility] [address] [place] [phone] [place] [address] [place] [phone] Social History Tobacco Use Types Packs/Day [...] on filedocumented in this encounter Care Teams Handle Assembler Relationship Specialty Start Date End Date Brien Bonner MD [address] [place] [address] PCP - General Family Medicine 03/28/23 documented as of this encounter
--- OUTSIDE RECORDS SUMMARY | 2024-05-19 06:21 | XMS_ITS | CONTINUITY OF CARE DOCUMENT ---
Author Name evelio fraser Address Unknown Organization [facility] Address [address] [facility] [address] [place] [address] Phone [phone] Care Team Providers Care Molded Parts Inspector Name Role Phone Guero ALEJANDRA, Michell Unavailable SOHEILA MCRAE MD Unavailable [phone] PITO CALLAWAY MD Unavailable INSURANCE PROVIDERS Payer name Policy type / Coverage type [place] red democrat ID [id number]
== END 2024-05-19 06:23 | disposition home or self-care (01) ==
LOC: ANHED 06:19
PROVIDERS: Emergency Provider Emergency Medicine; PCP Family Medicine
DX: K04.7 Periapical abscess without sinus (principal); E78.5 Hyperlipidemia, unspecified; I10 Essential (primary) hypertension; Z96.641 Presence of right artificial hip joint
CPT/HCPCS: 99283; A9270

== ENCOUNTER 2024-07-24 15:26 | Outpatient (CLI) | payer BC, MEDICARE, SELFPAY ==
--- NOTE | ~2024-07-24 | MR_ITS ---
MRI of the brain Clinical History: Tremor Technique: Axial and sagittal T1-weighted images were acquired. These were followed by axial T2-weigh goldie, diffusion weighted, gradient, and FLAIR images. Findings: There is no acute infarct, intracranial hemorrhage, or mass lesion. There are moderate senior software qa analyst petey white matter changes in the periventricular white matter bilaterally. Ventricles and subarachnoid spaces are unremarkable. Orbits are unremarkable. Paranasal sinuses and m astoid air cells are clear. Major intracranial flow voids appear intact. Sagittal midline structures are intact. IMPRESSION: Moderate chronic microvascular ischemic change. No other significant findings. Reviewed, dictated and finalized at location M.
--- OUTSIDE RECORDS SUMMARY | 2024-07-24 15:30 | XMS_ITS | Encounter Summary ---
Author Organization [facility] [employer] [facility] , [facility] Address [address] [place] [phone] Phone Care Team Providers Care Ships Or Barges Loader Name Role Phone Brien Bonner MD Primary Care Provider [phone] Reason for Visit * Reason Comments Med Refill Encounter Details Date Type Department Care Team (Late st Contact Info) Description 09/06/2023 Refill [place] [employer] [facility], [facility] [address] [place] [phone] Josh Mendoza DO [address] [phone] Social History Tobacco Use [...] on filedocumented in this encounter Care Teams Ships Or Barges Loader Relationship Specialty Start Date End Date Brien Bonner MD [address] [place] [address] PCP - General Family Medicine 03/28/23 documented as of this encounter
--- OUTSIDE RECORDS SUMMARY | 2024-07-24 15:30 | XMS_ITS | Encounter Summary ---
Author Organization [facility] [employer] [facility] , [facility] Address [address] [place] [phone] Phone Care Team Providers Care Heater Helper Forge Name Role Phone Brien Bonner MD Primary Care Provider [phone] Reason for Visit * Reason Comments Med Refill Encounter Details Date Type Department Care Team (Late st Contact Info) Description 12/10/2023 Refill [place] [email or web address] [facility], [facility] [address] [place] [phone] Josh Mendoza DO [address] [phone] Social History Tobacco Use Types [...] on filedocumented in this encounter Care Teams Heater Helper Forge Relationship Specialty Start Date End Date Brien Bonner MD [address] [address] PCP - General Family Medicine 03/28/23 documented as of this encounter
--- OUTSIDE RECORDS SUMMARY | 2024-07-24 15:30 | XMS_ITS | CONTINUITY OF CARE DOCUMENT ---
Author Name evelio fraser Address Unknown Organization [facility] Address [address] [facility] [address] [place] [address] Phone [phone] Care Team Providers Care Global Account Director Name Role Phone Guero ALEJANDRA, Michell Unavailable [phone] SOHEILA MCRAE MD Unavailable [phone] PITO CALLAWAY MD Unavailable INSURANCE PROVIDERS Payer name Policy type / Coverage type [place] red libertarian ID [id number]
--- OUTSIDE RECORDS SUMMARY | 2024-07-24 15:30 | XMS_ITS | Encounter Summary ---
Author Organization [facility] [employer] [facility] , [facility] Address [address] [place] [phone] Phone Care Team Providers Care Cable Television Installer Name Role Phone Brien Bonner MD Primary Care Provider [phone] Reason for Visit * Reason Comments Med Refill Encounter Details Date Type Department Care Team (Late st Contact Info) Description 06/19/2023 Refill [place] [employer] [facility], [facility] [address] [place] [phone] Josh Mendoza DO [address] [phone] Social History Tobacco Use Types [...] on filedocumented in this encounter Care Teams Cable Television Installer Relationship Specialty Start Date End Date Brien Bonner MD [address] [address] PCP - General Family Medicine 03/28/23 documented as of this encounter
--- OUTSIDE RECORDS SUMMARY | 2024-07-24 15:30 | XMS_ITS | Encounter Summary ---
Author Organization [facility] [employer] , [facility] Address [address] [place] [phone] Phone Care Team Providers Care Asset Protection Specialist Name Role Phone Brien Bonner MD Primary Care Provider [phone] Reason for Visit * Reason Comments Med Refill Encounter Details Date Type Department Care Team (Late st Contact Info) Description 10/22/2020 Refill [place] [facility], [facility] [address] [place] [phone] [place] [address] [place] [phone] Social History Tobacco Use Types Packs/Day [...] on filedocumented in this encounter Care Teams Asset Protection Specialist Relationship Specialty Start Date End Date Brien Bonner MD [address] [address] PCP - General Family Medicine 03/28/23 documented as of this encounter
--- OUTSIDE RECORDS SUMMARY | 2024-07-24 15:30 | XMS_ITS | Clinical Summary ---
Author Organization [facility] Facility Address [address] [place] [address] Care Team Providers Care Bleacher Operator Name Role Phone Brine Bonner MD Primary Care Provider [phone] Medications tamsulosin (FLOMAX) 0.4 MG 24 hr [...] Comments Blood Pressure 118/58 03/28/2023 3:46 PM CODING ANALYST Pulse 88 03/28/2023 3:46 PM CODING ANALYST Temperature 36.1 C (97 F) 03/28/2023 3:46 PM CODING ANALYST Respiratory Rate 18 03/28/2023 3:46 PM CODING ANALYST Oxygen Saturation 96% 03/28/2023 3:46 PM CODING ANALYST Inhaled Oxygen Concentration - - Weight 129 kg (284 lb) 03/28/2023 3:46 PM CODING ANALYST Height 167.6 cm (5' 6) 09/21/2021 12:34 PM CDT Body Mass Index 45.84 09/21/2021 12:34 PM CDT Plan of Treatment Health Maintenance Due Date Last Done Comments Breast Cancer Screening 1955 Pneumococcal Vaccine: 50+ Ye ars (1 of 2 - PCV) 01/04/1975 Colorectal Cancer Screening: Annual FOBT 01/04/2005 Colorectal Cancer Screening: Colonoscopy 01/04/2005 Colorectal Cancer Screening: Sigmoidoscopy 01/04/2005 Influenza Vaccine (Season Ended) 2024 11/28/19 17 Hepatitis B Vaccine Aged Out No longe r eligible based on patient's age to complete this topic Insurance Medicare [facility] Care Teams Bleacher Operator Relationship Specialty Start Date End Date Brien Bonner MD [address] [place] [address] [address] [place], [place] [id number] PCP - General Family Medicine 03/28/23
--- OUTSIDE RECORDS SUMMARY | 2024-07-24 15:30 | XMS_ITS | Encounter Summary ---
Author Organization [facility] , [facility] Address [address] [place] [phone] Phone Care Team Providers Care Np Name Role Phone Brien Bonner MD Primary Care Provider [phone] Reason for Visit * Reason Comments Med Refill Encounter Details Date Type Department Care Team (Late st Contact Info) Description 09/19/2020 Refill [place] [employer] [facility], [facility] [address] [place] [phone] [place] [address] [place] [phone] Social History Tobacco Use Types Packs/Day [...] on filedocumented in this encounter Care Teams Np Relationship Specialty Start Date End Date Brien Bonner MD [address] [address] PCP - General Family Medicine 03/28/23 documented as of this encounter
--- OUTSIDE RECORDS SUMMARY | 2024-07-24 15:30 | XMS_ITS | Encounter Summary ---
Author Organization [facility] [employer] , [facility] Address [address] [place] [phone] Phone Care Team Providers Care Team Psychologist Name Role Phone Brien Bonner MD Primary Care Provider [phone] Reason for Visit * Reason Comments Med Refill Encounter Details Date Type Department Care Team (Late st Contact Info) Description 08/17/2020 Refill [place] [employer] [facility], [facility] [address] [place] [phone] [place] [address] [place] [phone] Social History Tobacco Use Types Packs/Day [...] on filedocumented in this encounter Care Teams Team Psychologist Relationship Specialty Start Date End Date Brien Bonner MD [address] [address] PCP - General Family Medicine 03/28/23 documented as of this encounter
--- OUTSIDE RECORDS SUMMARY | 2024-07-24 15:30 | XMS_ITS | Encounter Summary ---
Author Organization [facility] [employer] [facility] , [facility] Address [address] [place] [phone] Phone Care Team Providers Care Research Consultant Name Role Phone Brien Bonner MD Primary Care Provider Reason for Visit * Reason Comments Med Refill Encounter Details Date Type Department Care Team (Late st Contact Info) Description 05/10/2023 Refill [place] [employer] [facility], [facility] [address] [place] [phone] Josh Mendoza DO [address] [phone] Social History Tobacco Use Types [...] on filedocumented in this encounter Care Teams Research Consultant Relationship Specialty Start Date End Date Brien Bonner MD [address] [address] PCP - General Family Medicine 03/28/23 documented as of this encounter
== END 2024-07-24 15:27 | disposition home or self-care (01) ==
PROVIDERS: PCP Family Medicine; Visit Provider Nurse Practitioner Adult Health
DX: R25.1 Tremor, unspecified (principal); R93.0 Abnormal findings on diagnostic imaging of skull and head, not elsewhere classified
CPT/HCPCS: 70551

== ENCOUNTER 2024-07-27 07:39 | Outpatient (CLI) | payer BC, MEDICARE, SELFPAY ==
--- NOTE | ~2024-07-27 | MM_ITS ---
EXAMINATION: MM screening [facility] BI [facility] [place] HISTORY: Screening TECHNIQUE: Craniocaudal and mediolateral oblique 3-D tomosynthesis images were obtained and synthetic 2-D images were generated. CAD analysis was submitted and interpreted. COMPARISON: Comparison to multiple prior studies sequentially, with oldest reviewed study dated 01/28. BREAST PARENCHYMAL COMPOSITION: Not Dense. The breasts are almost entirely fatty. FINDINGS: There is no evidence of suspicious mass, calcification, or architectural distortion to sugg est malignancy in either breast. There has been no suspicious interval change. IMPRESSION: 1. No mammographic evidence of malignancy. 2. Recommend routine screening mammography in one year. BI-RADS Category 1: Negative Reviewed, dictated and finalized at location A.
--- NOTE | ~2024-07-27 | DEXA_ITS ---
Bone Density Report Name: ERIC HEIN Age: 69 Sex: Female Ethnicity: White Date of : 1955 Indication: postmenopausal; screening for osteoporosis; Referring Provider: AYDEN MENDEZ Study: Bone densitometry was performed. Exam Date: July 27, 2024 Accession number: [id number] Bone Density: Region BMD T-score Z-score Classification AP Spine(L1-L4) 1.175 1.2 3.2 Normal Femoral Neck (Left) 0.749 -0.9 0.8 Normal Total Hip (Left) 0.970 0.2 1.6 Normal Femoral Neck (Right) 0.782 -0.6 1.1 Normal Total Hip (Right) 1.023 0.7 2.1 Normal Total Hip Mean 0.996 0.5 1.9 Normal World Health Organization criteria for BMD impression classify patients as: Normal (T-score at or above -1.0), Osteopenia (T-score between -1.0 and -2.5), or Osteoporosis (T-score at or below -2.5). Clinical Information Provided by Patient: Has used the following medications: Vitamin D Patient maximum height was 66 Menopause Age: 49 Drinks caffeinated beverages Onset of menses at age 13 Number of children 1 Impression: The patient has normal bone mass. Discussion: BONE DENSITY IS ABOVE THE MINIMUM DESIRABLE LEVEL AT ALL SKELETAL SITES TESTED. This patient?s bone mineral density is above the minimum desirable level (T-score -1.0 or better) at all sites measured. The patient should follow a healthful lifestyle (good nutrition with adequate calcium and vitamin D, and appropriate weight-bearing exercise). Follow-Up: Consider repeating this study in 5 years or sooner if there is some new clinical indication. Reported by: JUAN JOSE on 07/27/2024 8:25:00 AM. Reviewed, dictated and finalized at location A.
--- OUTSIDE RECORDS SUMMARY | 2024-07-27 07:45 | XMS_ITS | Encounter Summary ---
Author Organization [facility] , [facility] Address [address] [place] [phone] Phone Care Team Providers Care Joinery Machinist Name Role Phone Brien Bonner MD Primary Care Provider [phone] Reason for Visit * Reason Comments Med Refill Encounter Details Date Type Department Care Team (Late st Contact Info) Description 12/10/2023 [address]ill [place] [address] Newspaper Organization [facility], [facility] [address] [place] [phone] Josh Mendoza DO [address] [phone] Social History Tobacco Use Types [...] on filedocumented in this encounter Care Teams Joinery Machinist Relationship Specialty Start Date End Date Brien Bonner MD [address] [place] [address] PCP - General Family Medicine 03/28/23 documented as of this encounter
--- OUTSIDE RECORDS SUMMARY | 2024-07-27 07:45 | XMS_ITS | Encounter Summary ---
Author Organization [facility] [employer] , [facility] Address [address] [place] [phone] Phone Care Team Providers Care Field Sales Representative Name Role Phone Brien Bonner MD Primary Care Provider [phone] Reason for Visit * Reason Comments Med Refill Encounter Details Date Type Department Care Team (Late st Contact Info) Description 08/17/2020 Refill [place] [facility], [facility] [address] [place] [phone] [place] [address] [place] [phone] Social History Tobacco Use Types Packs/Day [...] on filedocumented in this encounter Care Teams Field Sales Representative Relationship Specialty Start Date End Date Brien Bonner MD [address] [address] PCP - General Family Medicine 03/28/23 documented as of this encounter
--- OUTSIDE RECORDS SUMMARY | 2024-07-27 07:45 | XMS_ITS | Encounter Summary ---
Author Organization [facility] [employer] , [facility] Address [address] [place] [phone] Phone Care Team Providers Care Parachute Accessories Attacher Name Role Phone Brien Bonner MD Primary Care Provider [phone] Reason for Visit * Reason Comments Med Refill Encounter Details Date Type Department Care Team (Late st Contact Info) Description 10/22/2020 Refill [place] [facility], [facility] [address] [place] [phone] [place] [address] [place] [phone] Social History Tobacco Use Types Packs/Day [...] on filedocumented in this encounter Care Teams Parachute Accessories Attacher Relationship Specialty Start Date End Date Brien Bonner MD [address] [address] PCP - General Family Medicine 03/28/23 documented as of this encounter
--- OUTSIDE RECORDS SUMMARY | 2024-07-27 07:45 | XMS_ITS | Clinical Summary ---
Author Organization [facility] Address [address] [place] [address] Care Team Providers Care Sales And Merchandising Associate Name Role Phone Brien Bonner MD Primary Care Provider [phone] Medications tamsulosin (FLOMAX) 0.4 MG 24 hr [...] Comments Blood Pressure 118/58 03/28/2023 3:46 PM REAL ESTATE INVESTOR Pulse 88 03/28/2023 3:46 PM REAL ESTATE INVESTOR Temperature 36.1 C (97 F) 03/28/2023 3:46 PM REAL ESTATE INVESTOR Respiratory Rate 18 03/28/2023 3:46 PM REAL ESTATE INVESTOR Oxygen Saturation 96% 03/28/2023 3:46 PM REAL ESTATE INVESTOR Inhaled Oxygen Concentration - - Weight 129 kg (284 lb) 03/28/2023 3:46 PM REAL ESTATE INVESTOR Height 167.6 cm (5' 6) 09/21/2021 12:34 [...] age to complete this topic Insurance Medicare [facility] Care Teams Sales And Merchandising Associate Relationship Specialty Start Date End Date Brien Bonner MD [address] [place] [address] [address] [place], [place] [id number] PCP - General Family Medicine 03/28/23
--- OUTSIDE RECORDS SUMMARY | 2024-07-27 07:45 | XMS_ITS | Encounter Summary ---
Author Organization [facility] [employer] [facility] , [facility] Address [address] [place] [phone] Phone Care Team Providers Care Associate Brand Manager Name Role Phone Brien Bonner MD Primary Care Provider [phone] Reason for Visit * Reason Comments Med Refill Encounter Details Date Type Department Care Team (Late st Contact Info) Description 05/10/2023 Refill [place] [employer] [facility], [facility] [address] [place] [phone] Josh Mendoza DO [address] [phone] Social History Tobacco Use Types [...] on filedocumented in this encounter Care Teams Associate Brand Manager Relationship Specialty Start Date End Date Brien Bonner MD [address] [place] [address] PCP - General Family Medicine 03/28/23 documented as of this encounter
--- OUTSIDE RECORDS SUMMARY | 2024-07-27 07:45 | XMS_ITS | CONTINUITY OF CARE DOCUMENT ---
Author Name evelio fraser Address Unknown Organization [facility] Address [address] [facility] [address] [place] [address] Phone [phone] Care Team Providers Care Spool Winder Name Role Phone Guero ALEJANDRA, Michell Unavailable SOHEILA MCRAE MD Unavailable [phone] PITO CALLAWAY MD Unavailable [phone] INSURANCE PROVIDERS Payer name Policy type / Coverage type [place] [employer] party ID [id number]
--- OUTSIDE RECORDS SUMMARY | 2024-07-27 07:45 | XMS_ITS | Encounter Summary ---
Author Organization [facility] [employer] [facility] , [facility] Address [address] [place] [phone] Phone Care Team Providers Care Dry Cleaning Counter Clerk Name Role Phone Brien Bonner MD Primary Care Provider [phone] Reason for Visit * Reason Comments Med Refill Encounter Details Date Type Department Care Team (Late st Contact Info) Description 06/19/2023 Refill [place] [employer] [facility] [place], [facility] [address] [place] [phone] Josh Mendoza DO [address] [phone] Social History Tobacco Use Types [...] on filedocumented in this encounter Care Teams Dry Cleaning Counter Clerk Relationship Specialty Start Date End Date Brien Bonner MD [address] [place] [address] PCP - General Family Medicine 03/28/23 documented as of this encounter
--- OUTSIDE RECORDS SUMMARY | 2024-07-27 07:45 | XMS_ITS | Encounter Summary ---
Author Organization [facility] [employer] , [facility] Address [address] [place] [phone] Phone Care Team Providers Care Auto Striper Name Role Phone Brien Bonner MD Primary Care Provider [phone] Reason for Visit * Reason Comments Med Refill Encounter Details Date Type Department Care Team (Late st Contact Info) Description 09/19/2020 Refill [employer] [facility], [facility] [address] [place] [phone] [place] [address] [place] [phone] Social History Tobacco Use Types Packs/Day [...] on filedocumented in this encounter Care Teams Auto Striper Relationship Specialty Start Date End Date Brien Bonner MD [address] [place] [address] PCP - General Family Medicine 03/28/23 documented as of this encounter
--- OUTSIDE RECORDS SUMMARY | 2024-07-27 07:45 | XMS_ITS | Encounter Summary ---
Author Organization [facility] [employer] [facility] , [facility] Address [address] [place] [phone] Phone Care Team Providers Care Merchandise Flow Associate Name Role Phone Brien Bonner MD Primary Care Provider [phone] Reason for Visit * Reason Comments Med Refill Encounter Details Date Type Department Care Team (Late st Contact Info) Description 09/06/2023 Refill [facility], [facility] [address] [place] [phone] Josh Mendoza DO [address] [phone] Social History Tobacco Use Types [...] on filedocumented in this encounter Care Teams Merchandise Flow Associate Relationship Specialty Start Date End Date Brien Bonner MD [address] [place] [address] PCP - General Family Medicine 03/28/23 documented as of this encounter
== END 2024-07-27 07:40 | disposition home or self-care (01) ==
PROVIDERS: PCP Family Medicine; Visit Provider Physician Assistant Medical
DX: Z12.31 Encounter for screening mammogram for malignant neoplasm of breast (principal); Z78.0 Asymptomatic menopausal state; Z13.820 Encounter for screening for osteoporosis
CPT/HCPCS: 77063; 77067; 77080